=== PATIENT | female | born 1935 | race Hispanic/Latino ===

== ENCOUNTER 2017-08-31 10:00 | Outpatient (CLI) | payer MEDICARE, MEDICAID | END 2017-08-31 10:01 | disposition home or self-care (01) | LOC: MERGE 10:00 → BICMRI 10:00 | PROVIDERS: ATTEND Physical Medicine & Rehabilitation | DX: M54.2 Cervicalgia (principal); M54.5 Low back pain; M25.511 Pain in right shoulder; M25.512 Pain in left shoulder; M47.896 Other spondylosis, lumbar region | CPT/HCPCS: 72141; 72148 ==

== ENCOUNTER 2018-02-02 15:25 | Observation (INO) | payer MEDICARE, MEDICAID ==
[2018-02-02] MEDS ORDERED: cloNIDine 0.1 MG TAB PO PRN (16:29)
[2018-02-02] MEDS ORDERED: Acetaminophen 325 MG TAB PO PRN (16:29)
[2018-02-02] MEDS ORDERED: Nitroglycerin 0.4 MG TAB (25 Tab Bottle) SL PRN (16:29)
[2018-02-02] MEDS ORDERED: Bisacodyl 5 MG TAB PO PRN ×2 (16:29)
[2018-02-02] MEDS ORDERED: Loratadine 10 MG TAB PO PRN (16:29)
[2018-02-02] MEDS ORDERED: Ondansetron HCl/PF 4 MG/2 ML Vial IVP PRN (16:29)
[2018-02-02] MEDS ORDERED: Diabetic Tussin 200 MG/10 ML UDCUP PO PRN (16:29)
[2018-02-02] MEDS ORDERED: Senokot S 8.6-50 MG TAB PO PRN (16:29)
[2018-02-02] MEDS ORDERED: Benzonatate 100 MG CAP PO PRN (16:29)
[2018-02-02] MEDS ORDERED: Senokot 8.6 MG TAB PO PRN (16:29)
[2018-02-02] MEDS ORDERED: Docusate 100 MG CAP PO PRN (16:29)
[2018-02-02] MEDS ORDERED: Calcium Carbonate 500 MG ChewTAB PO PRN (16:29)
[2018-02-02] MEDS ORDERED: hydrALAZINE 20 MG/ML VIAL SLOW IVP PRN (16:29)
[2018-02-02] MEDS ORDERED: Sodium Chloride 0.9% 1,000 ML IV SCH (16:30)
[2018-02-02 16:58] LABS: Troponin I 0.025 ng/mL (< 0.028)
[2018-02-02] MEDS ORDERED: HumaLOG 300 UNITS/3 ML VIAL SC PRN (17:07)
[2018-02-02] MEDS ORDERED: Dextrose 5% in Water 1,000 ML IV PRN (17:07)
[2018-02-02] MEDS ORDERED: Dextrose 50% Abboject 50 ML SYRINGE SLOW IVP PRN (17:07)
--- NOTE | 2018-02-02 17:43 | HP ---
PRIMARY CARE PHYSICIAN: Asmita Ramesh MD CHIEF COMPLAINT: Dizziness and slow heart rate. HISTORY OF PRESENT ILLNESS: Ms. Tejada is an 82-year-old female with past medical history of diabetes, hypertension, dyslipidemia, and peripheral neuropathy as well as history of spinal stenosis, who pre sented to outside emergency room with above-mentioned complaint. History was mainly obtained from e patient herself and discussion with the family members present in the room. Ms. Tejada reports that she woke up this morning feeling fine and she has been feeling fine up until ye as well. She denies any recent illnesses, nausea, vomiting, diarrhea, dysuria, frequency, ur gency. She denies any sick contacts. However, when she woke up this morning she was feeling very we ak all over. She did not have any chest pain, palpitation, or shortness of breath. She had no fever or chills. She had an appointment with her primary care physician today, so she presented to [facility] and her blood pressure was okay, but her heart rate was in the 40s. She was told to go to the mergency room and they drove to [place] [facility] initially. There, on evaluation, her heart rate was 49 w ith a blood pressure of 96/51 upon presentation. She did have a mild elevation of creatinine over he r baseline and rest of the workup including the CT scan of the head was unremarkable. 12-lead EKG sh owed sinus bradycardia. Her cardiac enzymes are mildly bumped at 0.33. She was given 500 mL of flui d and aspirin and was transferred to our facility for further workup. Here, she has been stable and Internal Medicine Team has been called to admit her to the hospital. At the time of my evaluation, the patient feels well and her heart rate has recovered in the 60s. PAST MEDICAL HISTORY: 1. Hypertension. 2. Dyslipidemia. 3. Coronary artery disease. 4. Diabetes mellitus type 2. 5. Neuropathy. 6. Chronic pain secondary to arthritis. 7. Spinal stenosis. PAST SURGICAL HISTORY: Appendectomy, cholecystectomy, hysterectomy, back surgery in 2009. CURRENT MEDICATIONS: Unknown. The patient was on propranolol earlier this year. I am not sure if s he is still taking it or not. I have updated her care provider to bring the medications in tomorrow morning. SOCIAL HISTORY: She lives by herself with the help of a care provider and is ambulatory with a walke r. Her son who is not present in the room at this time is the medical power of managing attorney. No history of drug, tobacco, or alcohol abuse. FAMILY HISTORY: Diabetes and heart disease in her mother and multiple other family members with diab etes mellitus. REVIEW OF SYSTEMS: A 12-point review of systems is done and it is negative except for those mentione d in the history and physical. CODE STATUS: FULL CODE. Discussed with the patient and her daughter present in the room. LABORATORY DATA: CBC shows WBC 7.7, hemoglobin 11.5, platelet count of 254. No left shift, no bande alison. Serum chemistries show creatinine of 1.56 with a BUN of 27, bicarbonate 19 with normal anion ga p. Blood sugar is 251. Troponin initially 0.033 with a repeat troponin of 0.025. 12-lead EKG by my review shows sinus bradycardia without any acute ST or T-wave changes. CT scan of the head by my re view has no evidence to suggest any acute intracranial abnormality. PHYSICAL EXAMINATION: VITAL SIGNS: Upon presentation to the emergency room, blood pressure 96/51, pulse of 49, respiration s 18, saturating 95% on room air. Current heart rate is 62. Temperature is 98.2. GENERAL: No acute distress, awake, alert, oriented x3, lying comfortably in bed. HEENT: Mucous membranes are slightly dry. No oropharyngeal exudate or erythema. Head is normocepha lic, atraumatic. Pupils equal and reactive to light and accommodation. Extraocular movement intact. NECK: Supple without any lymphadenopathy, JVD, or bruit. CHEST: Clear to auscultation without any wheezing, rales, or rhonchi. CARDIOVASCULAR: Rate and rhythm are regular without any murmur, rubs, or gallops. ABDOMEN: Obese, soft, nontender, nondistended with positive bowel sounds. EXTREMITIES: Tender to palpation bilaterally with some chronic lower extremity erythema near the ank les. No specific edema or warmth noticed. NEUROLOGIC: Nonfocal. SKIN: Free of any rashes or bruises. Feel warm and dry to touch. PSYCHIATRIC: Normal affect. IMPRESSION AND PLAN: 1. Sinus bradycardia, most likely secondary to beta lauren that the patient is taking. We will con firm that once the medications are available. Her heart rate is currently in the normal range. She had a negative stress test and rather normal echocardiogram in 02/2014. Repeat troponin is back to h er baseline. We do not suspect ACS at this time. An echocardiogram will be repeated. If the patien t has further episodes of bradycardia, which is symptomatic on telemetry, then we will obtain Cardiol ogy consultation. 2. Dizziness, likely secondary to sinus bradycardia, as well as with evidence of dehydration. Check urinalysis to rule out urinary tract infection as well. Normal saline will be started. 3. Acute kidney insufficiency. The patient reports poor p.o. intake today. We will start her on ge ntle IV fluid hydration and recheck creatinine in the morning. Avoid any nephrotoxic agents. 4. Troponin elevation. Repeat troponin back to normal. Likely secondary to dehydration and episode of sinus bradycardia. Continue to trend serial cardiac enzymes. We will get an echocardiogram. Th e patient has already received aspirin in the emergency room. We will reconcile home medication. 5. Diabetes mellitus. We will put her on insulin sliding scale until the home medications are recon ciled. No evidence to suggest diabetic ketoacidosis at this time. The patient will be on a carb-con trolled diet. 6. Hypertension, currently well controlled. Reconcile home medications and avoid hypotension. 7. Dyslipidemia. Restart home medications once confirmed. 8. Code status: FULL CODE. Discussed with the patient and her family present at bedside. 9. Deep venous thrombosis and gastrointestinal prophylaxis. DISPOSITION: Ms. Tejada is currently being admitted to the hospital in the observation status for furt her workup of isolated episode of bradycardia, likely related to her medication use as well as acute renal insufficiency and further workup of borderline elevated troponin. Further management will depe nd upon her clinical course.
[2018-02-02 18:14] VITALS: BMI 37.0
[2018-02-02 19:47] LABS: Troponin I 0.023 ng/mL (< 0.028)
[2018-02-02] MEDS: Famotidine 20 MG TAB PO SCH (20:38)
[2018-02-02 22:08] LABS: Bilirubin Negative (Negative); Blood, Urine Trace (Negative); Clarity CLOUDY (Clear); Glucose, Urine (Dipstick) >=1000 mg/dL (Negative); Leukocyte Small (Negative); Nitrite Positive (Negative); Protein, Urine (Dipstick) Negative (Neg-Trace); Specific Gravity, Urine 1.027 (1.002-1.036); Urobilinogen 0.2 mg/dL (0.2-1.0); pH, Urine 5.5 (5.0-9.0)
[2018-02-02 22:10] LABS: Bacteria/HPF 4+ HPF (None Seen); Hyaline Casts/LPF 7-10 HYALINE CAST LPF (0-3 Hyaline); Pathc Cast-AUWi Flag 0.43 (0-2.49); RBC/HPF 0-3 HPF (0-3); Squamous Epithelial 0-3 HPF (0-3)
[2018-02-02 23:13] LABS: Troponin I 0.021 ng/mL (< 0.028)
--- NOTE | 2018-02-02 23:41 | ULT ---
BILATERAL LOWER EXTREMITY VENOUS DOPPLER ULTRASOUND 02/02/18 HISTORY: Bilateral lower extremity pain and edema. TECHNIQUE: Diaz scale ultrasound with color flow and spectral doppler imaging of the deep venous systems of the lower extremities was performed bilaterally. There is good flow compression, and augmentation noted in the common femoral, femoral, deep femoral, popliteal, posterior tibial and greater saphenous veins. A complex fluid collection seen in the posterior medial aspect of the right posterior medial aspect o f the right knee measuring 5 x 1.5 x 2.7 cm consistent with a Santana's cyst. IMPRESSION: No evidence of DVT in either lower extremity. POS: [facility]
[2018-02-03 04:36] LABS: #Basophils 0.1 thou/uL (0.0-0.2); #Eosinphils 0.1 thou/uL (0.0-0.7); #Lymphocytes 1.9 thou/uL (1.20-3.40); #Monocytes 0.6 thou/uL (0.11-0.59); #Neutrophils 3.4 thou/uL (1.40-6.50); %Eosinophils 1.5 % (0.0-10.0); %Lymphocytes 31.7 % (21.0-51.0); %Monocytes 9.4 % (0.0-10.0); %Neutrophils 56.4 % (42.0-75.0); Mean Corpuscular HGB CONC 31.6 g/dL (32.0-36.0); Mean Corpuscular Hemoglobin 29.7 pg (27.0-31.0); Mean Corpuscular Volume 93.9 fL (78.0-98.0); Mean Platelet Volume 8.6 fL (7.4-10.4); Platelet Count 258 thou/uL (130-400); RBC Distribution Width 15.3 % (11.5-14.5); Red Blood Cell (RBC) Count 3.72 mill/uL (4.20-5.40)
[2018-02-03 04:52] LABS: Anion Gap 12 mmol/L (10-20); BUN (Urea Nitrogen) 24 mg/dL (9.8-20.1); Calc. Creatinine Clearance 52 mL/min (70-130); Calcium 8.8 mg/dL (7.8-10.44); Carbon Dioxide 22 mmol/L (23-31); Chloride 108 mmol/L (98-107); Estimated GFR-MDRD 48; Glucose 153 mg/dL (83-110); Sodium 138 mmol/L (136-145)
[2018-02-03 07:46] VITALS: TEMP 98.1
[2018-02-03] MEDS ORDERED: Enoxaparin Sodium 30 MG/0.3 ML SYRINGE SC SCH (09:00)
[2018-02-03] MEDS ORDERED: cefTRIAXone\\ROCEPHIN 1 GM in Sodium Chloride 0.9% 100 ML IVPB SCH (09:00)
[2018-02-03] MEDS: Famotidine 20 MG TAB PO SCH (10:14)
[2018-02-03 12:22] VITALS: BP 142/65
--- NOTE | 2018-02-03 14:46 | DIS ---
DATE OF ADMISSION: 02/02/2018 DATE OF DISCHARGE: 02/03/2018 DISCHARGE DIAGNOSES: Include presyncope, bradycardia and hypertension. CONSULTATIONS: None. CODE STATUS: FULL. PROCEDURES: Include chest x-ray and venogram. Venogram ultrasound of bilateral legs, Doppler has no evidence of DVT in either extremity. HISTORY: Ms. Tejada is an 82-year-old female with a past medical history of diabetes, hypertension, dy slipidemia, and peripheral neuropathy. She presented to the emergency room for dizziness and a slow heart rate. She denies any recent illness. Denies any sick contacts. She was feeling very weak all over when she woke up yesterday morning. Denies chest pain, had no fevers or chills and her blood p ressure when she went to her primary care office in [place] was in 40s. Initially when she got to [facility] emergency room, her blood pressure was 49 with a blood pressure of 96/[address] scan of the head in [place] was unremarkable. EKG showed sinus bradycardia. Cardiac enzymes were mildly bumpe d, they have remained negative. PHYSICAL EXAMINATION: VITAL SIGNS: On discharge, blood pressure 142/65, heart rate 72, temperature was 98.1, respirations were 18. REVIEW OF SYSTEMS: .
--- NOTE | 2018-02-04 01:19 | DIS ---
DATE OF ADMISSION: 02/02/2018 DATE OF DISCHARGE: 02/03/2018 PRIMARY CARE PHYSICIAN: Dr. Asmita Ramesh. DISCHARGE DIAGNOSES: 1. Sinus bradycardia which has improved off beta lauren. 2. Dizziness which is resolved today. 3. Acute kidney injury which was resolved with gentle hydration. 4. Diabetes mellitus 2. 5. Hypertension. 6. Dyslipidemia. 7. Urinary tract infection. CODE STATUS: FULL. ALLERGIES: ASPIRIN, LEVOTHYROXINE and TRAMADOL. PROCEDURES: She had a bilateral Doppler to bilateral legs on 02/02 which were negative for DVT. Ech o today at 10:10 with LVEF of 55-60%. Findings suggestive of some diastolic dysfunction. PHYSICAL EXAMINATION: VITAL SIGNS: Temperature 98.1, pulse 67, respirations 18, pulse ox is 96% on room air, blood pressur e is 146/65. The patient was seen by me prior to discharge, refer to the H&P dictated on 02/02, no c hanges, unless otherwise indicated in the hospital course. HOSPITAL COURSE: Ms. Tejada was admitted through ED as a transfer from an outside ER for weakness and dizziness which started earlier in the day on 02/02/2018. First set of troponins were slightly eleva he; however, the next 2 were normal. Symptoms are thought to be related to her beta lauren which w as not given while she was in the hospital and symptoms have improved. Patient reports she is feelin g better. Dizziness has resolved. We will discontinue the beta lauren and have the patient take he r blood pressure while she is at home and have her follow up with Dr. Ramesh within the next week. She was also found to have a UTI, which was treated in-house and since she was sent home with some antib iotics. DISCHARGE MEDICATIONS: Her home medications were restarted, 20 mg p.o. daily, Invokana 100 mg p.o. daily, Cymbalta 60 mg p.o. daily, Neurontin 300 mg p.o. t.i.d., Nexium 40 mg p.o. daily, metform in 1000 mg p.o. b.i.d.. Prednisone she takes 5 mg p.o. daily, levothyroxine 50 mcg p.o. daily, Actos 45 mg p.o. daily, pravastatin 40 mg p.o. at bedtime, cefdinir, which was added today 300 mg p.o. b.i .d. for her UTI. She was taken off her propranolol. DISCHARGE CONDITION: Stable. DISPOSITION: Home. FOLLOWUP APPOINTMENTS: To follow up with her PCP, Dr. Ramesh within 1 week.
== END 2018-02-03 16:20 | disposition home or self-care (01) ==
LOC: ERS 15:25 → 2SW 17:10
PROVIDERS: ADMIT Internal Medicine; ATTEND Internal Medicine
DX: R00.1 Bradycardia, unspecified (principal); R42 Dizziness and giddiness; N17.9 Acute kidney failure, unspecified; N39.0 Urinary tract infection, site not specified; R79.89 Other specified abnormal findings of blood chemistry; E11.42 Type 2 diabetes mellitus with diabetic polyneuropathy; I10 Essential (primary) hypertension; E78.5 Hyperlipidemia, unspecified; M48.062 Spinal stenosis, lumbar region with neurogenic claudication; I25.10 Atherosclerotic heart disease of native coronary artery without angina pectoris; M19.90 Unspecified osteoarthritis, unspecified site; E66.9 Obesity, unspecified; Z68.37 Body mass index [BMI] 37.0-37.9, adult; Z79.52 Long term (current) use of systemic steroids; Z79.899 Other long term (current) drug therapy; Z88.5 Allergy status to narcotic agent; Z79.84 Long term (current) use of oral hypoglycemic drugs; Z88.8 Allergy status to other drugs, medicaments and biological substances
CPT/HCPCS: 80048; 81001; 82010; 82962 ×2; 84484; 85025; 87077; 87086; 87186; 93005; 93306; 93970; 96361 ×2; 96365; 96372; 99285; G0378 ×2; G8978; G8979; 36415; 36416; J0696; J1650; J7050

== ENCOUNTER 2018-04-14 09:58 | Outpatient (CLI) | payer MEDICARE, MEDICAID ==
--- NOTE | 2018-04-14 12:13 | BD ---
EXAM: DEXA BONE DENSITY STUDY: History: 82-year-old female with history of osteoporosis. Comparison: 06-23-16 BMD (g/cm2) Right Hip: Right femoral neck: 0.665 T-Score: -1.7 Total 0.991 T-Score: -0.3 Evidence for osteopenia with increased risk for fracture, essentially stable from prior 06-23-16 study . Left Hip: Left femoral neck: 0.678 T-Score: -1.5 Total: 0.989 T-Score: +0.4 Evidence for osteopenia with increased risk for fracture, bone mineral density has improved approxima tely 1.7% from the prior study. FRAX score: Major osteoporotic fracture 27%, hip fracture 16%. POS: [facility]
--- NOTE | 2018-04-14 12:14 | RAD ---
RIGHT SHOULDER THREE VIEWS: History: Shoulder pain. Comparison: None. FINDINGS: No acute fracture or malalignment. Large subacromial osteophyte. Mild degenerative disease, acromioclavicular joint. IMPRESSION: Large subacromial osteophyte can cause severe acromial impingement. No acute abnormality. POS: [facility]
--- NOTE | 2018-04-14 12:16 | RAD ---
LEFT SHOULDER THREE VIEWS: History: Pain. Comparison: None. FINDINGS: No fracture. No malalignment. A large subacromial osteophyte. Ribs are intact. Mild degenerative disease of the glenohumeral joint with osteophyte formation. IMPRESSION: Large subacromial osteophyte can be a cause of subacromial impingement. POS: [facility]
== END 2018-04-14 09:59 | disposition home or self-care (01) ==
LOC: BICMAMMO 09:58
PROVIDERS: ATTEND Internal Medicine Rheumatology
DX: Z13.820 Encounter for screening for osteoporosis (principal); M25.511 Pain in right shoulder; M25.512 Pain in left shoulder; M85.851 Other specified disorders of bone density and structure, right thigh; M85.852 Other specified disorders of bone density and structure, left thigh; M25.712 Osteophyte, left shoulder; M25.711 Osteophyte, right shoulder
CPT/HCPCS: 77080

== ENCOUNTER 2018-07-01 16:16 | Inpatient (IN) | payer MEDICARE, OTHER ==
[2018-07-01 17:07] LABS: #Lymphocytes 1.6 thou/uL (1.20-3.40); #Monocytes 0.5 thou/uL (0.11-0.59); #Neutrophils 4.9 thou/uL (1.40-6.50); %Basophils 0.1 % (0.0-1.0); %Eosinophils 0.3 % (0.0-10.0); %Lymphocytes 22.8 % (21.0-51.0); %Monocytes 7.3 % (0.0-10.0); %Neutrophils 69.5 % (42.0-75.0); Hemoglobin 9.8 g/dL (12.0-16.0); Mean Corpuscular HGB CONC 31.7 g/dL (32.0-36.0); Mean Corpuscular Hemoglobin 29.8 pg (27.0-31.0); Mean Corpuscular Volume 93.8 fL (78.0-98.0); Mean Platelet Volume 8.3 fL (7.4-10.4); Platelet Count 224 thou/uL (130-400); RBC Distribution Width 15.5 % (11.5-14.5)
[2018-07-01 17:23] LABS: ALT (SGPT) 32 U/L (8-55); AST (SGOT) 35 U/L (5-34); Albumin 3.6 g/dL (3.4-4.8); Alkaline Phosphatase 65 U/L (40-150); Anion Gap 13 mmol/L (10-20); BUN (Urea Nitrogen) 39 mg/dL (9.8-20.1); Bilirubin, Total 0.2 mg/dL (0.2-1.2); Calc. Creatinine Clearance 0 mL/min (70-130); Calcium 8.7 mg/dL (7.8-10.44); Carbon Dioxide 20 mmol/L (23-31); Chloride 107 mmol/L (98-107); Estimated GFR-MDRD 45; Globulin 2.6 g/dL (2.4-3.5); Glucose 172 mg/dL (83-110); Potassium 4.8 mmol/L (3.5-5.1); Protein, Total 6.2 g/dL (6.0-8.3); Sodium 135 mmol/L (136-145)
[2018-07-01 19:39] LABS: Bilirubin Negative (Negative); Blood, Urine Trace (Negative); Clarity CLOUDY (Clear); Glucose, Urine (Dipstick) 250 mg/dL (Negative); Leukocyte Moderate (Negative); Nitrite Positive (Negative); Protein, Urine (Dipstick) Negative (Neg-Trace); Specific Gravity, Urine 1.018 (1.002-1.036); Urobilinogen 0.2 mg/dL (0.2-1.0); pH, Urine 5.5 (5.0-9.0)
[2018-07-01 19:44] LABS: Bacteria/HPF 4+ HPF (None Seen); Hyaline Casts/LPF 4-6 HYALINE CAST LPF (0-3 Hyaline); Pathc Cast-AUWi Flag 1.63 (0-2.49)
[2018-07-01 20:06] LABS: RBC/HPF 0-3 HPF (0-3)
[2018-07-01 20:07] LABS: Renal Epithelial None Seen HPF (0-3); Transitional Epithelial 0-3 HPF (0-3)
[2018-07-01] MEDS ORDERED: Ondansetron PF 4 MG/2 ML Vial IVP PRN ×2 (21:04→22:01)
[2018-07-01] MEDS ORDERED: Ondansetron ODT 4 MG TAB SL PRN (21:04)
[2018-07-01] MEDS ORDERED: Acetaminophen 325 MG TAB PO PRN (21:04)
[2018-07-01] MEDS ORDERED: Dextrose 50% Abboject 50 ML SYRINGE SLOW IVP PRN (22:01)
[2018-07-01] MEDS ORDERED: Ondansetron ODT 4 MG TAB PO PRN (22:01)
[2018-07-01] MEDS ORDERED: Dextrose 5% in Water 1,000 ML IV PRN (22:01)
[2018-07-01] MEDS ORDERED: HumaLOG 300 UNITS/3 ML VIAL SC PRN ×2 (22:01)
[2018-07-01] MEDS: cefTRIAXone\\ROCEPHIN 2 GM in Sodium Chloride 0.9% 100 ML IVPB SCH (23:56)
[2018-07-01] MEDS: Sodium Chloride 0.9% 1,000 ML IV SCH (23:57)
--- NOTE | 2018-07-02 01:58 | HP ---
PRIMARY CARE PROVIDER: Asmita Ramesh MD CHIEF COMPLAINT: General body aches and back pain. HISTORY OF PRESENT ILLNESS: This is an 82-year-old female, who presented to [facility] Emergency Department in transfer from [facility] Department for suspected urinary tract infection and questionable sepsis. The patient apparently was attending her physical therapy session when she complained of some shortness of breath, back pain, and general weakness. The patient apparently had O2 saturation measured in the 70s range and was placed on oxygen supplementation. The patient complained of some lower back pain, general body aches, general malaise, and mild dysuria over the last 24 to 48 hours. The patient denied any recent exposure history, falls or injury. The patient denied any specific change to her chronic medication regimen. The patient did not take any specific medications or remedies to alleviate her symptoms. The patient does report a history of urinary tract infections on multiple occasions dating back over the last 3-4 years. In the emergency room, the patient underwent general evaluation and was noted with mild hypotension, receiving IV fluids. The patient received intravenous normal saline x1 L in the emergency room and noted to be 99% on room air. The patient was transferred to the telemetry unit for further evaluation and treatment for suspected urinary tract infection. PAST MEDICAL HISTORY: 1. Recurrent urinary tract infections. 2. Hypertension. 3. Dyslipidemia. 4. Coronary artery disease. 5. Diabetes mellitus type 2, on oral hypoglycemics. 6. Peripheral neuropathy. 7. Chronic pain secondary to osteoarthritis. 8. History of spinal stenosis. PAST SURGICAL HISTORY: 1. Status post appendectomy. 2. Status post cholecystectomy. 3. Status post hysterectomy. 4. Status post back surgery. CURRENT MEDICATIONS: Based on review of the electronic medical record; 1. Invokana 100 mg p.o. daily. 2. Cymbalta 60 mg p.o. daily. 3. Lexapro 20 mg p.o. daily. 4. Nexium 40 mg p.o. daily. 5. Gabapentin 300 mg p.o. t.i.d. 6. Levothyroxine 50 mcg p.o. daily. 7. Metformin 1000 mg p.o. b.i.d. 8. Actos 45 mg p.o. daily. 9. Pravachol 40 mg p.o. at bedtime. ALLERGIES: TO ASPIRIN, LEVOTHYROXINE, AND TRAMADOL. FAMILY HISTORY: Positive for diabetes and coronary artery disease in her mother. Father lived into the mid 90s. Mother at age 73. SOCIAL HISTORY: The patient resides in [place], [place], living independently with the help of a care provider. Ambulates with use of a rolling walker. Her son is medical [id number]. No current alcohol, tobacco, or illicit drug use. REVIEW OF SYSTEMS: CONSTITUTIONAL: Negative for weight loss or gain, ability to conduct usual activities. SKIN: Negative for rash, itching. EYES: Negative for double vision, pain. ENT/MOUTH: Negative for nose bleeding, neck stiffness, pain, tenderness. CARDIOVASCULAR: Negative for palpitations, dyspnea on exertion, orthopnea. RESPIRATORY: Negative for shortness of breath, wheezing, cough, hemoptysis, fever or night sweats. GASTROINTESTINAL: Negative for poor appetite, abdominal pain, heartburn, nausea, vomiting, constipation, or diarrhea. GENITOURINARY: Negative for urgency, frequency, dysuria, nocturia. MUSCULOSKELETAL: Negative for pain, swelling. NEUROLOGIC/PSYCHIATRIC: Negative for anxiety, depression. ALLERGY/IMMUNOLOGIC: Negative for skin rash, bleeding tendency. Otherwise, negative except as stated per HPI. PHYSICAL EXAMINATION: VITAL SIGNS: On admission. Blood pressure 96/57, pulse 51, respiratory rate 19, temperature 97.9 degrees Fahrenheit, O2 saturation 99% on room air. GENERAL APPEARANCE: This is an 82-year-old female, alert and oriented x3, pleasant, responsive, in no acute distress. HEENT: Pupils are equal, round, reactive to light and accommodation. Extraocular muscles are intact. No scleral icterus. No conjunctival injection. Nares are patent. OP is clear. Teeth are in fair repair. NECK: Supple. No cervical adenopathy. No thyromegaly. No carotid bruits. No JVD appreciated. Cervical spine with full active and passive range of motions. No meningeal signs noted. CHEST: Lungs are clear to auscultation bilaterally. CARDIOVASCULAR: S1 and S2 without noted murmur, rub, or gallop. ABDOMEN: Obese, soft, nontender, and nondistended. Bowel sounds are positive in all 4 quadrants. Mild suprapubic tenderness elicited. No palpable mass. No rebound or guarding. EXTREMITIES: Warm and dry with fair turgor. No clubbing, cyanosis, or asymmetric edema appreciated. Pulses are palpable distally at the dorsalis pedis, posterior tibial, and popliteal arteries bilaterally. Capillary refill is less than 2 seconds. NEUROLOGIC: Cranial nerves 2 through 12 are grossly intact. No focal or lateralizing signs appreciated. PERTINENT LAB AND X-RAY FINDINGS: Portable chest x-ray dated 07/01/2018, showed cardiomegaly with mild pulmonary vascular prominence. ASSESSMENT/PLAN: 1. Urinary tract infection. Suspected. We will initiate Rocephin 2 g IV q.24 hours. Continue IV fluids with normal saline at 100 mL/h. Urine and blood cultures are pending. Previous review of electronic medical record shows urine cultures positive for E coli and Proteus species. 2. Systemic inflammatory response syndrome. We will continue IV fluids as outlined previously. General supportive management and IV antibiotics as directed in #1. 3. Acute kidney injury. Avoid nephrotoxic agents and limit contrast exposure. Continue IV fluids as outlined previously. Repeat creatinine and monitor renal function. 4. Diabetes mellitus, type 2. Insulin sliding scale for reflexive coverage. Confirm home diabetic regimen. Accu-Cheks before meals and at bedtime. ADA diet. 5. Hypotension. Mild. Responding appropriately to IV fluid administration. Hold antihypertensive regimen and monitor clinically. 6. Normocytic anemia. Chronic appearing. Stable currently. No current evidence to suggest acute blood loss. Repeat CBC in the a.m. 7. Prophylaxis. SCDs while in bed. Pepcid 20 mg p.o. b.i.d. PT evaluation in the a.m. for functional assessment. 8. Code status is full. Surrogate medical decision maker is patient's son. Job ID: [id number]
[2018-07-02] MEDS: Sodium Chloride 0.9% 1,000 ML IV SCH (05:34)
[2018-07-02 05:39] VITALS: BMI 36.4
[2018-07-02] MEDS ORDERED: Levothyroxine Sodium 50 MCG TAB PO SCH (06:00)
[2018-07-02 07:02] LABS: Band 1 % (5-11); Eosinophils 1 % (0-10); Hemoglobin 9.9 g/dL (12.0-16.0); Lymphocytes 33 % (21-51); MDiff Complete? YES; Mean Corpuscular HGB CONC 32.2 g/dL (32.0-36.0); Mean Corpuscular Hemoglobin 28.9 pg (27.0-31.0); Mean Corpuscular Volume 89.9 fL (78.0-98.0); Monocytes 7 % (0-10); Neutrophil 58 % (42-75); Platelet Count 192 thou/uL (130-400); Platelet Morphology Comment Appears Adequate; RBC Distribution Width 15.5 % (11.5-14.5); Red Blood Cell (RBC) Count 3.42 mill/uL (4.20-5.40); White Blood Cell (WBC) Count 6.4 thou/uL (4.8-10.8)
[2018-07-02 07:04] LABS: Anion Gap 15 mmol/L (10-20); BUN (Urea Nitrogen) 29 mg/dL (9.8-20.1); Calc. Creatinine Clearance 62 mL/min (70-130); Calcium 8.4 mg/dL (7.8-10.44); Carbon Dioxide 19 mmol/L (23-31); Chloride 111 mmol/L (98-107); Estimated GFR-MDRD 56; Glucose 115 mg/dL (83-110); Potassium 3.9 mmol/L (3.5-5.1); Sodium 141 mmol/L (136-145)
[2018-07-02] MEDS ORDERED: Famotidine 20 MG TAB PO SCH (09:00)
[2018-07-02] MEDS: Gabapentin 300 MG CAP PO SCH ×3 (09:31→21:29)
[2018-07-02] MEDS: Escitalopram Oxalate 20 mg Tablet PO SCH (09:31)
--- NOTE | 2018-07-02 14:11 | PDOC.PN ---
- Subjective Encounter Start Date: 07/02/18 Encounter Start Time: 08:15 Subjective: awake, feels better -: no nausea or abd pain - Objective Resuscitation Status - Order Detail: 07/01/18 21:56 Resuscitation Status Routine Resuscitation Status: FULL: Full Resuscitation MAR Reviewed: Yes Vital Signs & Weight: Vital Signs (12 hours) Temp Pulse Pulse Pulse Resp BP BP 07/02/18 11:25 64 65 154/67 H 202/77 H 07/02/18 11:12 97.6 F 68 16 07/02/18 07:20 97.7 F 60 16 07/02/18 03:40 97.6 F 56 L 20 BP BP BP Pulse Ox Pulse Ox Pulse Ox 07/02/18 11:25 186/74 H 96 98 07/02/18 11:12 144/64 H 97 07/02/18 07:20 150/66 H 96 07/02/18 03:40 161/70 H 95 Weight Weight 186 lb 9.6 oz I&O: 07/01/18 07/02/18 07/03/18 06:59 06:59 06:59 Intake Total 2286 730 Output Total 1450 700 Balance 836 30 Result Diagrams: 07/02/18 06:31 07/02/18 06:31 Additional Labs: Accuchecks 07/02/18 07/02/18 07/01/18 10:55 05:50 20:38 POC Glucose 180 H 120 H 144 H Phys Exam - Physical Examination HEENT: PERRLA, moist MMs Neck: no JVD, supple Respiratory: no wheezing, no rales Cardiovascular: RRR, no significant murmur Gastrointestinal: soft, non-tender, positive bowel sounds Musculoskeletal: no edema, pulses present Neurological: non-focal, moves all 4 limbs Psychiatric: normal affect, A&O x 3 Dx/Plan (1) UTI (urinary tract infection) Status: Acute Qualifiers: Urinary tract infection type: acute cystitis Hematuria presence: without hematuria Qualified Code(s): N30.00 - Acute cystitis without hematuria (2) SIRS (systemic inflammatory response syndrome) Code(s): R65.10 - SIRS OF NON-INFECTIOUS ORIGIN W/O ACUTE ORGAN DYSFUNCTION Status: Acute (3) DM type 2 (diabetes mellitus, type 2) Status: Chronic Qualifiers: Diabetes mellitus intermediate insulin use: without intermediate use Diabetes mellitus complication status: with unspecified complications Qualified Code(s) : E11.8 - Type 2 diabetes mellitus with unspecified complications (4) Anemia Code(s): D64.9 - ANEMIA, UNSPECIFIED Status: Chronic Qualifiers: Anemia type: unspecified type Qualified Code(s): D64.9 - Anemia, unspecified (5) HTN (hypertension) Code(s): I10 - ESSENTIAL (PRIMARY) HYPERTENSION Status: Chronic Qualifiers: Hypertension type: essential hypertension Qualified Code(s): I10 - Essential (primary) hypertension (6) Dyslipidemia Code(s): E78.5 - HYPERLIPIDEMIA, UNSPECIFIED Status: Chronic (7) Hypothyroidism Code(s): E03.9 - HYPOTHYROIDISM, UNSPECIFIED Status: Chronic Qualifiers: Hypothyroidism type: unspecified Qualified Code(s): E03.9 - Hypothyroidism , unspecified (8) CAD (coronary artery disease) Code(s): I25.10 - ATHSCL HEART DISEASE OF [place] CORONARY ARTERY W/O ANG PCTRS Status: Chronic Qualifiers: Coronary Disease-Associated Artery/Lesion type: elim ir[place] artery [place] vs. transplanted heart: [place] heart Associated angina: without angina Qualified Code(s): I25.10 - Atherosclerotic heart disease of [place] coronary artery without angina pectoris - Plan is on ceftriaxone -: dc iv fluids, encourage po intake -: tx to med floor -: to amb as tolerated -: continue gabapentin, asp, toprol, pravachol * . Review of Systems - Medications/Allergies Allergies/Adverse Reactions: Allergies Allergy/AdvReac Type Severity Reaction Status Date / Time amoxicillin [From Augmentin] Allergy Verified 07/01/18 22:40 aspirin [From Anacin] Allergy Verified 07/01/18 22:40 celecoxib [From Celebrex] Allergy Verified 07/01/18 22:40 clavulanic acid Allergy Verified 07/01/18 22:40 [From Augmentin] levothyroxine sodium Allergy Verified 07/01/18 22:40 pregabalin [From Lyrica] Allergy Verified 07/01/18 22:40 tramadol Allergy Nausea Verified 07/01/18 22:40 Medications: Current Medications Acetaminophen (Tylenol) 1,000 mg PO Q6H PRN PRN Reason: Mild Pain (1-3) Dextrose/Water (Dextrose 50%) 25 gm SLOW IVP PRN PRN PRN Reason: Hypoglycemia Escitalopram Oxalate (Lexapro) 20 mg PO DAILY [facility] Last Admin: 07/02/18 09:31 Dose: 20 mg Famotidine (Pepcid) 20 mg PO BID [facility] Last Admin: 07/02/18 09:32 Dose: 20 mg Gabapentin (Neurontin) 300 mg PO TID [facility] Last Admin: 07/02/18 09:31 Dose: 300 mg Glucagon (Glucagon) 1 mg IM PRN PRN PRN Reason: Hypoglycemia Ceftriaxone Sodium 2 gm/ (Sodium Chloride) 100 mls @ 200 mls/hr IVPB 2200 [facility] Last Admin: 07/01/18 23:56 Dose: 100 mls Dextrose/Water (D5w) 1,000 mls @ 0 mls/hr IV .Q0M PRN PRN Reason: Hypoglycemia Insulin Human Lispro (Humalog) 0 units SC .MILD SLIDING SCALE PRN PRN Reason: Mild Correctional Scale Insulin Human Lispro (Humalog) 0 units SC .BEDTIME SLIDING SC PRN PRN Reason: Bedtime Correctional Scale Ondansetron HCl (Zofran Odt) 4 mg PO Q6H PRN PRN Reason: Nausea/Vomiting Ondansetron HCl (Zofran) 4 mg IVP Q6H PRN PRN Reason: Nausea/Vomiting Sodium Chloride (Flush - Normal Saline) 10 ml IVF Q12HR [facility] Last Admin: 07/02/18 08:56 Dose: Not Given Sodium Chloride (Flush - Normal Saline) 10 ml IVF PRN PRN PRN Reason: Saline Flush
[2018-07-02] MEDS ORDERED: Loperamide HCl 2 MG CAP PO PRN (15:10)
[2018-07-02] MEDS: cefTRIAXone\\ROCEPHIN 2 GM in Sodium Chloride 0.9% 100 ML IVPB SCH (21:29)
[2018-07-02] MEDS: Atorvastatin Calcium 10 MG TAB PO SCH (21:29)
[2018-07-02] MEDS: Acetaminophen 500 MG TAB PO PRN (21:32)
[2018-07-03] MEDS ORDERED: Vancomycin HCl 1 GM in Premix Bag 1 BAG IVPB SCH (07:00)
[2018-07-03] MEDS: Aspirin Chewable 81 MG TAB PO SCH (08:08)
[2018-07-03] MEDS: Gabapentin 300 MG CAP PO SCH ×3 (08:08→21:07)
[2018-07-03] MEDS: DULoxetine 60 MG CAP PO SCH (08:08)
[2018-07-03] MEDS: metFORMIN 500 MG TAB PO SCH (08:08)
[2018-07-03] MEDS: Escitalopram Oxalate 20 mg Tablet PO SCH (08:08)
--- NOTE | 2018-07-03 15:39 | PDOC.PN ---
- Subjective Encounter Start Date: 07/03/18 Encounter Start Time: 11:20 Subjective: no sob or abd pain -: is tolerating oral diet -: has not ambulated much except to reach her commode - Objective Resuscitation Status - Order Detail: 07/01/18 21:56 Resuscitation Status Routine Resuscitation Status: FULL: Full Resuscitation MAR Reviewed: Yes Vital Signs & Weight: Vital Signs (12 hours) Temp Pulse Resp BP BP Pulse Ox 07/03/18 11:00 98.3 F 71 18 140/77 95 07/03/18 08:00 98.5 F 79 20 156/77 H 94 L 07/03/18 04:01 98.2 F 73 20 146/82 H 95 Weight Weight 186 lb 9.6 oz I&O: 07/02/18 07/03/18 07/04/18 06:59 06:59 07:59 Intake Total 2286 730 Output Total 1450 700 Balance 836 30 Result Diagrams: 07/02/18 06:31 07/02/18 06:31 Additional Labs: Accuchecks 07/03/18 07/03/18 07/02/18 11:49 04:05 19:49 POC Glucose 212 H 138 H 172 H 07/02/18 16:14 POC Glucose 120 H Phys Exam - Physical Examination HEENT: PERRLA, moist MMs Neck: no JVD, supple Respiratory: no wheezing, no rales Cardiovascular: RRR, no significant murmur Gastrointestinal: soft, non-tender, positive bowel sounds Musculoskeletal: no edema, pulses present Neurological: non-focal, moves all 4 limbs Psychiatric: normal affect, A&O x 3 Dx/Plan (1) UTI (urinary tract infection) Status: Acute Qualifiers: Urinary tract infection type: acute cystitis Hematuria presence: without hematuria Qualified Code(s): N30.00 - Acute cystitis without hematuria (2) SIRS (systemic inflammatory response syndrome) Code(s): R65.10 - SIRS OF NON-INFECTIOUS ORIGIN W/O ACUTE ORGAN DYSFUNCTION Status: Resolved (3) DM type 2 (diabetes mellitus, type 2) Status: Chronic Qualifiers: Diabetes mellitus [place] headgate operator insulin use: without detention use Diabetes mellitus complication status: with unspecified complications Qualified Code(s) : E11.8 - Type 2 diabetes mellitus with unspecified complications (4) Anemia Code(s): D64.9 - ANEMIA, UNSPECIFIED Status: Chronic Qualifiers: Anemia type: unspecified type Qualified Code(s): D64.9 - Anemia, unspecified (5) HTN (hypertension) Code(s): I10 - ESSENTIAL (PRIMARY) HYPERTENSION Status: Chronic Qualifiers: Hypertension type: essential hypertension Qualified Code(s): I10 - Essential (primary) hypertension (6) Dyslipidemia Code(s): E78.5 - HYPERLIPIDEMIA, UNSPECIFIED Status: Chronic (7) Hypothyroidism Code(s): E03.9 - HYPOTHYROIDISM, UNSPECIFIED Status: Chronic Qualifiers: Hypothyroidism type: unspecified Qualified Code(s): E03.9 - Hypothyroidism , unspecified (8) CAD (coronary artery disease) Code(s): I25.10 - ATHSCL HEART DISEASE OF [place] CORONARY ARTERY W/O ANG PCTRS Status: Chronic Qualifiers: Coronary Disease-Associated Artery/Lesion type: [place] artery [place] vs. transplanted heart: [place] heart Associated angina: without angina Qualified Code(s): I25.10 - Atherosclerotic heart disease of [place] coronary artery without angina pectoris - Plan to amb as [facility] -: on ceftriaxone, culture is growing e.coli resistant to quinolones -: dc plan in am home if she ambulates well on bactrim -: continue asp, lipitor, toprol, metformin -: encourage po intake * . Review of Systems - Medications/Allergies Allergies/Adverse Reactions: Allergies Allergy/AdvReac Type Severity Reaction Status Date / Time amoxicillin [From Augmentin] Allergy Verified 07/01/18 22:40 aspirin [From Anacin] Allergy Verified 07/01/18 22:40 celecoxib [From Celebrex] Allergy Verified 07/01/18 22:40 clavulanic acid Allergy Verified 07/01/18 22:40 [From Augmentin] levothyroxine sodium Allergy Verified 07/01/18 22:40 pregabalin [From Lyrica] Allergy Verified 07/01/18 22:40 tramadol Allergy Nausea Verified 07/01/18 22:40 Medications: Current Medications Acetaminophen (Tylenol) 1,000 mg PO Q6H PRN PRN Reason: Mild Pain (1-3) Last Admin: 07/02/18 21:32 Dose: 1,000 mg Aspirin (Aspirin Chewable) 81 mg PO DAILY [facility] Last Admin: 07/03/18 08:08 Dose: 81 mg Atorvastatin Calcium (Lipitor) 10 mg PO HS [facility] Last Admin: 07/02/18 21:29 Dose: 10 mg Dextrose/Water (Dextrose 50%) 25 gm SLOW IVP PRN PRN PRN Reason: Hypoglycemia Duloxetine HCl (Cymbalta) 60 mg PO DAILY [facility] Last Admin: 07/03/18 08:08 Dose: 60 mg Escitalopram Oxalate (Lexapro) 20 mg PO DAILY [facility] Last Admin: 07/03/18 08:08 Dose: 20 mg Gabapentin (Neurontin) 300 mg PO TID [facility] Last Admin: 07/03/18 08:08 Dose: 300 mg Glucagon (Glucagon) 1 mg IM PRN PRN PRN Reason: Hypoglycemia Ceftriaxone Sodium 2 gm/ (Sodium Chloride) 100 mls @ 200 mls/hr IVPB 2200 [facility] Last Admin: 07/02/18 21:29 Dose: 100 mls Dextrose/Water (D5w) 1,000 mls @ 0 mls/hr IV .Q0M PRN PRN Reason: Hypoglycemia Insulin Human Lispro (Humalog) 0 units SC .MILD SLIDING SCALE PRN PRN Reason: Mild Correctional Scale Last Admin: 07/03/18 12:33 Dose: 3 unit Insulin Human Lispro (Humalog) 0 units SC .BEDTIME SLIDING SC PRN PRN Reason: Bedtime Correctional Scale Loperamide HCl (Imodium) 2 mg PO PRN PRN PRN Reason: Diarrhea/Loose Stools Last Admin: 07/02/18 15:45 Dose: 2 mg Metformin HCl (Glucophage) 1,000 mg PO QA[facility] Last Admin: 07/03/18 08:08 Dose: 1,000 mg Metoprolol Succinate (Toprol Xl) 25 mg PO DAILY [facility] Last Admin: 07/03/18 08:08 Dose: 25 mg Ondansetron HCl (Zofran Odt) 4 mg PO Q6H PRN PRN Reason: Nausea/Vomiting Ondansetron HCl (Zofran) 4 mg IVP Q6H PRN PRN Reason: Nausea/Vomiting Pantoprazole Sodium (Protonix) 40 mg PO DAILY [facility] Last Admin: 07/03/18 08:08 Dose: 40 mg Sodium Chloride (Flush - Normal Saline) 10 ml IVF Q12HR [facility] Last Admin: 07/03/18 08:10 Dose: 10 ml Sodium Chloride (Flush - Normal Saline) 10 ml IVF PRN PRN PRN Reason: Saline Flush
[2018-07-03] MEDS: Atorvastatin Calcium 10 MG TAB PO SCH (21:07)
[2018-07-03] MEDS: cefTRIAXone\\ROCEPHIN 2 GM in Sodium Chloride 0.9% 100 ML IVPB SCH (21:07)
[2018-07-03] MEDS: Acetaminophen 500 MG TAB PO PRN (21:07)
[2018-07-04 08:33] VITALS: BP 139/79; TEMP 98.1
[2018-07-04] MEDS: metFORMIN 500 MG TAB PO SCH (08:37)
[2018-07-04] MEDS: Aspirin Chewable 81 MG TAB PO SCH (08:37)
[2018-07-04] MEDS: Gabapentin 300 MG CAP PO SCH (08:37)
[2018-07-04] MEDS: DULoxetine 60 MG CAP PO SCH (08:37)
[2018-07-04] MEDS: Escitalopram Oxalate 20 mg Tablet PO SCH (08:37)
--- NOTE | 2018-07-04 13:38 | PDOC.PN ---
- Subjective Encounter Start Date: 07/04/18 Encounter Start Time: 09:00 Subjective: feels better, is amb in room -: no sob or diarrhea - Objective Resuscitation Status - Order Detail: 07/01/18 21:56 Resuscitation Status Routine Resuscitation Status: FULL: Full Resuscitation MAR Reviewed: Yes Vital Signs & Weight: Vital Signs (12 hours) Temp Pulse Resp BP BP Pulse Ox 07/04/18 08:00 98.1 F 75 20 139/79 97 07/04/18 04:00 98.0 F 75 16 161/89 H 95 Weight Weight 186 lb 9.6 oz I&O: 07/03/18 07/04/18 07/05/18 05:59 06:59 06:59 Intake Total Output Total Balance Result Diagrams: 07/02/18 06:31 07/02/18 06:31 Additional Labs: Accuchecks 07/04/18 07/04/18 07/03/18 11:07 06:42 20:49 POC Glucose 217 H 165 H 279 H 07/03/18 16:11 POC Glucose 136 H Phys Exam - Physical Examination HEENT: PERRLA, moist MMs Neck: no JVD, supple Respiratory: no wheezing, no rales Cardiovascular: RRR, no significant murmur Gastrointestinal: soft, non-tender, no distention, positive bowel sounds Musculoskeletal: no edema, pulses present Neurological: non-focal, moves all 4 limbs Psychiatric: normal affect, A&O x 3 Dx/Plan (1) UTI (urinary tract infection) Status: Acute Qualifiers: Urinary tract infection type: acute cystitis Hematuria presence: without hematuria Qualified Code(s): N30.00 - Acute cystitis without hematuria (2) SIRS (systemic inflammatory response syndrome) Code(s): R65.10 - SIRS OF NON-INFECTIOUS ORIGIN W/O ACUTE ORGAN DYSFUNCTION Status: Resolved (3) DM type 2 (diabetes mellitus, type 2) Status: Chronic Qualifiers: Diabetes mellitus custodial insulin use: without custodial use Diabetes mellitus complication status: with unspecified complications Qualified Code(s) : E11.8 - Type 2 diabetes mellitus with unspecified complications (4) Anemia Code(s): D64.9 - ANEMIA, UNSPECIFIED Status: Chronic Qualifiers: Anemia type: unspecified type Qualified Code(s): D64.9 - Anemia, unspecified (5) HTN (hypertension) Code(s): I10 - ESSENTIAL (PRIMARY) HYPERTENSION Status: Chronic Qualifiers: Hypertension type: essential hypertension Qualified Code(s): I10 - Essential (primary) hypertension (6) Dyslipidemia Code(s): E78.5 - HYPERLIPIDEMIA, UNSPECIFIED Status: Chronic (7) Hypothyroidism Code(s): E03.9 - HYPOTHYROIDISM, UNSPECIFIED Status: Chronic Qualifiers: Hypothyroidism type: unspecified Qualified Code(s): E03.9 - Hypothyroidism , unspecified (8) CAD (coronary artery disease) Code(s): I25.10 - ATHSCL HEART DISEASE OF [place] CORONARY ARTERY W/O ANG PCTRS Status: Chronic Qualifiers: Coronary Disease-Associated Artery/Lesion type: [place] artery [place] vs. transplanted heart: [place] heart Associated angina: without angina Qualified Code(s): I25.10 - Atherosclerotic heart disease of [place] coronary artery without angina pectoris - Plan hemostable -: macrobid x 4 days -: dc pt home * .
--- NOTE | 2018-07-04 16:29 | DIS ---
DATE OF ADMISSION: 07/01/2018 DATE OF DISCHARGE: 07/04/2018 DISCHARGE DISPOSITION: Home. PRIMARY DISCHARGE DIAGNOSES: Urinary tract infection with systemic inflammatory response syndrome, resolving. SECONDARY DISCHARGE DIAGNOSES: Chronic anemia; diabetes mellitus, type 2; hypertension; dyslipidemia; hypothyroidism; and coronary artery disease. PROCEDURES DONE DURING HOSPITALIZATION: Urine culture grew E coli, resistant to ampicillin and quinolones. Stool for C diff, Shiga toxin, Campylobacter were all negative. H and H 10 and 30 and platelet count 192. Discharge BUN and creatinine are 29 and 0.9. Admitting BUN and creatinine were 40 and 1.34. BNP was 772 on the day of admission. DISCHARGE MEDICATIONS: 1. Aspirin 81 mg p.o. daily. 2. Flexeril p.r.n. 3. Duloxetine 60 mg p.o. daily. 4. Escitalopram 20 mg p.o. daily. 5. Gabapentin 300 mg p.o. three times daily. 6. Metformin 1000 mg p.o. twice daily. 7. Toprol-XL 25 mg daily. 8. Protonix 40 mg daily. 9. Actos 45 mg p.o. daily. 10. Pravachol 40 mg p.o. at bedtime. 11. Macrobid 100 mg p.o. twice daily for another 4 days. ALLERGIES: ALLERGIC TO AMOXICILLIN, ASPIRIN, CELECOXIB, CLAVULANIC ACID, LEVOTHYROXINE, LYRICA, AND TRAMADOL. DISCHARGE PLAN: The patient to follow up with primary care physician in 1 week. BRIEF COURSE DURING HOSPITALIZATION: The patient initially got admitted on the with complaints of generalized body aches and back pain, and she was found to have had urinary tract infection with signs of SIRS. The patient was gently hydrated and was placed on IV antibiotics. She also had acute kidney injury, which has resolved with hydration. Her cultures grew E coli, resistant to quinolones. Prior to discharge, she was ambulating in the room and eating well. She needs to continue Macrobid for another 4 days. She is hemodynamically stable. Please see a [id number] documentation for the day of discharge on [employer]. Job ID: [id number]
== END 2018-07-04 12:10 | disposition home or self-care (01) | DRG 690 ==
LOC: ERS 16:16 → 2NO 20:29 → T4-A 07-02 12:49
PROVIDERS: ADMIT Emergency Medicine; ATTEND Emergency Medicine
DX: N39.0 Urinary tract infection, site not specified (principal); N17.9 Acute kidney failure, unspecified; I95.9 Hypotension, unspecified; D64.9 Anemia, unspecified; I10 Essential (primary) hypertension; E78.5 Hyperlipidemia, unspecified; E11.42 Type 2 diabetes mellitus with diabetic polyneuropathy; G89.29 Other chronic pain; I25.10 Atherosclerotic heart disease of native coronary artery without angina pectoris; E03.9 Hypothyroidism, unspecified; M19.90 Unspecified osteoarthritis, unspecified site; B96.20 Unspecified Escherichia coli [E. coli] as the cause of diseases classified elsewhere; Z87.440 Personal history of urinary (tract) infections; Z88.6 Allergy status to analgesic agent; Z88.5 Allergy status to narcotic agent; Z88.8 Allergy status to other drugs, medicaments and biological substances; Z88.1 Allergy status to other antibiotic agents; Z88.0 Allergy status to penicillin; Z79.84 Long term (current) use of oral hypoglycemic drugs; Z79.899 Other long term (current) drug therapy
CPT/HCPCS: 36415; 36416; 80048; 83605; 85007; 85027; 87045; 87046; 87324; 87449; 87899; J0696; J3370; J7050

== ENCOUNTER 2018-09-03 12:24 | Observation (INO) | payer MEDICARE, MEDICAID ==
--- NOTE | 2018-09-03 13:46 | RAD ---
XR Chest 1 View Portable History: [Chest pain dizziness and nausea] Comparison: Radiograph July 01, 2018 Findings: Heart size upper limits of normal. No pneumothorax. Mild chronic venous congestion. Remote right-sided rib fractures. No acute osseous abnormality. Impression: Cardiomegaly and mild pulmonary venous congestion.
[2018-09-03] MEDS ORDERED: Meclizine HCl 25 MG TAB ONE (14:02)
[2018-09-03 14:10] LABS: #Basophils 0.1 thou/uL (0.0-0.2); #Eosinphils 0.2 thou/uL (0.0-0.7); #Lymphocytes 1.8 thou/uL (1.20-3.40); #Monocytes 0.5 thou/uL (0.11-0.59); #Neutrophils 3.5 thou/uL (1.40-6.50); %Basophils 1.3 % (0.0-1.0); %Eosinophils 2.9 % (0.0-10.0); %Monocytes 8.8 % (0.0-10.0); %Neutrophils 56.9 % (42.0-75.0); Hemoglobin 11.6 g/dL (12.0-16.0); Mean Corpuscular HGB CONC 31.8 g/dL (32.0-36.0); Mean Corpuscular Hemoglobin 29.9 pg (27.0-31.0); Mean Corpuscular Volume 94.2 fL (78.0-98.0); Mean Platelet Volume 7.8 fL (7.4-10.4); Platelet Count 244 thou/uL (130-400); RBC Distribution Width 16.4 % (11.5-14.5); Red Blood Cell (RBC) Count 3.88 mill/uL (4.20-5.40); White Blood Cell (WBC) Count 6.1 thou/uL (4.8-10.8)
--- NOTE | 2018-09-03 14:23 | CT ---
CT BRAIN WITHOUT CONTRAST: HISTORY: Altered mental status. Dizziness. Nausea. COMPARISON: 02/02/2019 FINDINGS: No evidence of acute infarct, hemorrhage, midline shift, or abnormal extraaxial fluid collections is seen. The ventricular size is stable, and the basilar cisterns are patent. Changes of chronic small vessel ischemic disease are again seen. The bony calvarium is intact. The visualized paranasal sin uses are well aerated. There is continued decreased pneumatization of the mastoid air cells. IMPRESSION: No CT evidence of acute intracranial process. POS: YAW
[2018-09-03 14:30] LABS: ALT (SGPT) 13 U/L (8-55); AST (SGOT) 14 U/L (5-34); Alkaline Phosphatase 64 U/L (40-150); Anion Gap 16 mmol/L (10-20); BUN (Urea Nitrogen) 28 mg/dL (9.8-20.1); Bilirubin, Total 0.3 mg/dL (0.2-1.2); Calc. Creatinine Clearance 0 mL/min (70-130); Calcium 9.9 mg/dL (7.8-10.44); Carbon Dioxide 23 mmol/L (23-31); Chloride 102 mmol/L (98-107); Estimated GFR-MDRD 47; Globulin 3.4 g/dL (2.4-3.5); Glucose 146 mg/dL (83-110); Lipase 23 U/L (8-78); Potassium 4.2 mmol/L (3.5-5.1); Protein, Total 7.4 g/dL (6.0-8.3); Sodium 137 mmol/L (136-145)
[2018-09-03 16:35] LABS: Bilirubin Negative (Negative); Blood, Urine Trace (Negative); Clarity CLEAR (Clear); Glucose, Urine (Dipstick) >=1000 mg/dL (Negative); Leukocyte Small (Negative); Nitrite Positive (Negative); Protein, Urine (Dipstick) Negative (Neg-Trace); Specific Gravity, Urine 1.015 (1.002-1.036); Urobilinogen 0.2 mg/dL (0.2-1.0)
[2018-09-03 16:40] LABS: Bacteria/HPF 4+ HPF (None Seen); Hyaline Casts/LPF 0-3 HYALINE CAST LPF (0-3 Hyaline); Pathc Cast-AUWi Flag 0.68 (0-2.49); RBC/HPF 0-3 HPF (0-3); Squamous Epithelial None Seen HPF (0-3); WBC/HPF 21-50 HPF (0-3)
[2018-09-03] MEDS ORDERED: Ondansetron ODT 4 MG TAB PO PRN (18:17)
[2018-09-03] MEDS ORDERED: Acetaminophen 325 MG TAB PO PRN (18:17)
[2018-09-03] MEDS ORDERED: Meclizine HCl 25 MG TAB PO PRN (18:21)
[2018-09-03 18:33] VITALS: BMI 42.9
[2018-09-03] MEDS ORDERED: Dextrose 5% in Water 1,000 ML IV PRN (18:33)
[2018-09-03] MEDS ORDERED: Dextrose 50% Abboject 50 ML SYRINGE SLOW IVP PRN (18:33)
[2018-09-03] MEDS ORDERED: HumaLOG 300 UNITS/3 ML VIAL SC PRN (18:33)
[2018-09-03] MEDS: Famotidine 20 MG TAB PO SCH (21:48)
[2018-09-03] MEDS: Preparation H HC 1% Cream 26 GM TUBE TOP SCH (21:48)
--- NOTE | 2018-09-04 01:41 | HP ---
CHIEF COMPLAINT: Dizziness. HISTORY OF PRESENT ILLNESS: Ms. Tejada is an 83-year-old [place]an-speaking only female, who presented to the [facility] with complaints of dizziness. Her symptoms began today while she was at a clinic visit with her urologist, Dr. Santillan. She describes her dizziness as if the room is spinning, and she "loses control of her body" and feels that she cannot ambulate. She denies any syncope. The patient denies any associated symptoms. She denies chest pain, shortness of breath, palpitations, or headache. She denies any symptoms of focal weakness, numbness, or lightheadedness. Because of her symptoms, she was sent to the ED for further workup and treatment. On arrival to the ED, physical exam was significant for noted nystagmus. CT of her brain was negative for any acute intracranial abnormalities. Her chest x-ray showed mild pulmonary venous congestion. Her EKG showed normal sinus rhythm, no acute ST or T-wave changes. No interventricular conduction delays or bradycardia. She is being admitted to the hospitalist service for observation and CVA rule out. The patient was being seen by her urologist for recurrent UTIs. The patient was recently hospitalized at this facility July 01, 2018 through July 04, 2018 with UTI. At that visit, culture was positive for Enterobacter cloacae and presumptive Proteus mirabilis. Both susceptible to Macrobid, which she was discharged on and she did complete that course of antibiotics. Her UA at this hospitalization does appear positive for UTI with 4+ bacteria, leukocyte esterase, and nitrite positive, along with positive wbc's. The patient denies any dysuria at this time. REVIEW OF SYSTEMS: A 12-point review of systems was performed and is negative except that stated above. The patient specifically denies any recent cough, cold or flu symptoms. She denies any fever or chills. Review of systems is positive for chronic hemorrhoids, which she does say bleed from time to time. She has had a hemorrhoidectomy in the past. PAST MEDICAL HISTORY: 1. 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 2. Recurrent urinary tract infections. 3. Hypertension. 4. Dyslipidemia. 5. Coronary artery disease. 6. Type 2 diabetes mellitus, on oral hypoglycemics. 7. Peripheral neuropathy. 8. Osteoarthritis. 9. History of spinal stenosis. PAST SURGICAL HISTORY: 1. Appendectomy. 2. Cholecystectomy. 3. Hysterectomy. 4. Back surgery. 5. Hemorrhoidectomy. ALLERGIES: AMOXICILLIN, ASPIRIN, CELECOXIB, CLAVULANIC ACID, LEVOTHYROXINE, PREGABALIN, AND TRAMADOL. WE WILL NEED TO VERIFY ALLERGIES FURTHER ASPIRIN AND LEVOTHYROXINE ARE LISTED ON HER HOME MEDICATIONS. FAMILY HISTORY: Positive for diabetes and coronary artery disease. SOCIAL HISTORY: The patient lives in [place], and lives independently with a part-time caregiver. No alcohol, tobacco, or illicit drug use. She uses a rolling walker to ambulate. HOME MEDICATIONS: 1. Aspirin 81 mg daily. 2. Invokana 100 mg p.o. daily. 3. Cymbalta 60 mg p.o. daily. 4. Escitalopram 20 mg p.o. daily. 5. Gabapentin 600 mg p.o. t.i.d. 6. Levothyroxine 50 mcg p.o. daily. 7. Metformin 1000 mg p.o. b.i.d. 8. Toprol-XL 50 mg p.o. daily. 9. Protonix 40 mg p.o. daily. 10. Actos 45 mg p.o. daily. 11. Pravastatin 40 mg p.o. at bedtime. 12. Prednisone 5 mg p.o. daily. PHYSICAL EXAMINATION: VITAL SIGNS: Blood pressure 160/70, pulse 65, temperature 97.9, O2 saturation is 99% on room air. GENERAL: The patient is a moderately obese female in no acute distress. She is resting comfortably in bed. HEENT: Head atraumatic and normocephalic. Mucous membranes are moist. The patient has a very mild right facial droop, which is chronic. NECK: Supple. No lymphadenopathy. No carotid bruits. Trachea is midline. CV: S1 and S2. Regular rate and rhythm. No appreciable murmurs, rubs, or gallops. LUNGS: Regular respiratory rate and pattern, overall clear to auscultation bilaterally. ABDOMEN: Soft. Positive bowel sounds. Moderately obese. Nontender. EXTREMITIES: No lower extremity pitting edema. +2 DP pulses bilaterally. Both lower extremities are warm and well perfused. SKIN: Warm and dry. No obvious rashes. NEUROLOGIC: The patient is alert, awake, and oriented x3. Cranial nerves 2 through 12 are intact. The patient has no focal weaknesses. LABORATORY DATA: WBC 6.1, hemoglobin 11.6, hematocrit 36.6, MCV 94.2, platelets are 244. Sodium 137, potassium 4.2, chloride 102, anion gap 16, BUN 28, creatinine 1.12, glucose is 134. AST, ALT, and alkaline phosphatase all within normal limits. Troponin was negative. Urinalysis positive for nitrite, 4+ bacteria, leukocyte esterase, and white blood cell. ASSESSMENT: 1. Dizziness and nystagmus consistent with vertigo/benign paroxysmal positional vertigo, improved since arrival. 2. History of cerebrovascular accident with very mild right residual facial deficit/droop. 3. Recurrent urinary tract infections. 4. Coronary artery disease, followed by Dr. Will. 5. Type 2 diabetes mellitus, on oral hypoglycemics including Invokana. 6. Hemorrhoids. PLAN: We will admit the patient for observation and CVA rule out. We will obtain an MRI to rule out vertebrobasilar CVA. We will give the patient scheduled meclizine in hopes that this improves her symptoms. Given her positive urinalysis today, we will go ahead and start antibiotic therapy with ciprofloxacin, which the last culture was susceptible to. At this time, my thoughts are that the Invokana needs to be held indefinitely given her recurrent UTIs. We will await MRI results. The patient does have an outpatient followup with Dr. Santillan regarding her UTIs. At this time, the patient does not have a white count and is afebrile. Further recommendations based on hospital course. The care of this patient has been discussed with Dr. Beltrán who agrees with the above. Job ID: [id number]
[2018-09-04 05:34] VITALS: TEMP 98.1
[2018-09-04 06:05] LABS: Anion Gap 13 mmol/L (10-20); BUN (Urea Nitrogen) 27 mg/dL (9.8-20.1); Calc. Creatinine Clearance 55 mL/min (70-130); Calcium 9.6 mg/dL (7.8-10.44); Carbon Dioxide 23 mmol/L (23-31); Chloride 105 mmol/L (98-107); Estimated GFR-MDRD 52; Glucose 137 mg/dL (83-110); Potassium 4.4 mmol/L (3.5-5.1); Sodium 137 mmol/L (136-145)
[2018-09-04] MEDS ORDERED: Prevnar 13-Val Conj/PF 0.5 ML SYRINGE IM ONE (09:00)
[2018-09-04] MEDS ORDERED: Meclizine HCl 25 MG TAB PO SCH (09:00)
[2018-09-04] MEDS ORDERED: Ciprofloxacin 500 MG TAB PO SCH (09:00)
[2018-09-04 09:27] LABS: #Eosinphils 0.2 thou/uL (0.0-0.7); #Lymphocytes 1.5 thou/uL (1.20-3.40); #Monocytes 0.5 thou/uL (0.11-0.59); #Neutrophils 3.2 thou/uL (1.40-6.50); %Basophils 0.2 % (0.0-1.0); %Lymphocytes 27.4 % (21.0-51.0); %Monocytes 9.3 % (0.0-10.0); %Neutrophils 60.2 % (42.0-75.0); Mean Corpuscular HGB CONC 32.1 g/dL (32.0-36.0); Mean Corpuscular Volume 93.6 fL (78.0-98.0); Mean Platelet Volume 7.5 fL (7.4-10.4); Platelet Count 251 thou/uL (130-400); RBC Distribution Width 16.1 % (11.5-14.5); White Blood Cell (WBC) Count 5.4 thou/uL (4.8-10.8)
[2018-09-04] MEDS: Famotidine 20 MG TAB PO SCH (09:33)
[2018-09-04] MEDS: Preparation H HC 1% Cream 26 GM TUBE TOP SCH (09:34)
[2018-09-04 09:44] LABS: ALT (SGPT) 13 U/L (8-55); AST (SGOT) 15 U/L (5-34); Alkaline Phosphatase 65 U/L (40-150); Anion Gap 15 mmol/L (10-20); BUN (Urea Nitrogen) 25 mg/dL (9.8-20.1); Bilirubin, Total 0.4 mg/dL (0.2-1.2); Calc. Creatinine Clearance 49 mL/min (70-130); Carbon Dioxide 25 mmol/L (23-31); Chloride 102 mmol/L (98-107); Estimated GFR-MDRD 45; Globulin 3.4 g/dL (2.4-3.5); Glucose 165 mg/dL (83-110); Potassium 4.2 mmol/L (3.5-5.1); Protein, Total 7.4 g/dL (6.0-8.3); Sodium 138 mmol/L (136-145)
[2018-09-04] MEDS ORDERED: cloNIDine 0.1 MG TAB PO PRN (10:16)
[2018-09-04] MEDS ORDERED: hydrALAZINE 20 MG/ML VIAL SLOW IVP PRN (10:16)
[2018-09-04 10:46] VITALS: BP 188/84
--- NOTE | 2018-09-04 12:29 | MRI ---
MRI Brain WO Con: 09/04/2018 12:00 AM CLINICAL HISTORY: Vertigo and dizziness. TECHNIQUE: Multiplanar, multisequence images were obtained of the brain. COMPARISON: CT brain without contrast dated September 03, 2018 FINDINGS: Motion artifact limits image detail. Extra axial spaces: Normal in size and morphology for the patient's age. Hemorrhage: None. Ventricular system: Normal in size and morphology for the patient's age. Basal cisterns: Normal. Cerebral parenchyma: There is moderate chronic small vessel white matter ischemic change.. Midline shift: None. Cerebellum: Normal. Brainstem: Normal. OTHER: Calvarium: Normal. Vascular system: Appropriate flow voids are seen within the major intracranial vessels.. Visualized Paranasal sinuses: Clear. Visualized Orbits: The [place] lenses have been replaced. Visualized upper cervical spine: Normal. Sella and skull base: Normal. IMPRESSION: No acute intracranial abnormality.
== END 2018-09-04 16:08 | disposition home or self-care (01) ==
LOC: ERS 12:24 → 2SE 16:54
PROVIDERS: ADMIT Internal Medicine; ATTEND Internal Medicine
DX: H55.00 Unspecified nystagmus (principal); R42 Dizziness and giddiness; I10 Essential (primary) hypertension; E78.5 Hyperlipidemia, unspecified; I25.10 Atherosclerotic heart disease of native coronary artery without angina pectoris; E11.42 Type 2 diabetes mellitus with diabetic polyneuropathy; M19.90 Unspecified osteoarthritis, unspecified site; E03.9 Hypothyroidism, unspecified; F32.9 Major depressive disorder, single episode, unspecified; G47.33 Obstructive sleep apnea (adult) (pediatric); K21.9 Gastro-esophageal reflux disease without esophagitis; F17.200 Nicotine dependence, unspecified, uncomplicated; Z79.52 Long term (current) use of systemic steroids; Z79.82 Long term (current) use of aspirin; Z79.84 Long term (current) use of oral hypoglycemic drugs; Z79.899 Other long term (current) drug therapy; Z88.0 Allergy status to penicillin; Z88.5 Allergy status to narcotic agent; Z88.8 Allergy status to other drugs, medicaments and biological substances; Z86.73 Personal history of transient ischemic attack (TIA), and cerebral infarction without residual deficits
CPT/HCPCS: 51701; 70450; 70551; 71045; 80048; 80053 ×2; 81001; 82962 ×2; 83605; 83690; 84484; 85025 ×2; 87077; 87086; 87186; 93005; 94760; 97139; 99285; G0378 ×2; 36415; 36416; 81015; A4353; J8499

== ENCOUNTER 2018-10-18 11:00 | Outpatient (CLI) | payer MEDICARE, MEDICAID ==
--- NOTE | 2018-10-18 12:21 | ULT ---
US Renal Bilateral STANDARD History: Recurrent urinary tract infections Comparison: None. Findings: Real-time grayscale and color evaluation of the kidneys and urinary bladder was performed. Right kidney measures 9.2 x 5.4 x 6.8 cm and the left kidney measures 8.8 x 4.9 x 6.1 cm. Prevoid uri nary bladder volume is 203 mL. No renal mass, hydronephrosis, or abnormal calcifications. Impression: No evidence for obstructive uropathy.
== END 2018-10-18 11:01 | disposition home or self-care (01) ==
LOC: ULT 11:00
PROVIDERS: ATTEND Urology
DX: R80.8 Other proteinuria (principal); R81 Glycosuria; Z87.440 Personal history of urinary (tract) infections
CPT/HCPCS: 76770

== ENCOUNTER 2018-11-10 03:06 | Inpatient (IN) | payer MEDICARE, MEDICAID ==
[2018-11-10 05:42] LABS: Troponin I Less than 0.010 ng/mL (< 0.028)
[2018-11-10 08:33] LABS: Troponin I Less than 0.010 ng/mL (< 0.028)
[2018-11-10 10:30] LABS: #Eosinphils 0.1 thou/uL (0.0-0.7); #Lymphocytes 1.8 thou/uL (1.20-3.40); #Monocytes 0.6 thou/uL (0.11-0.59); #Neutrophils 3.4 thou/uL (1.40-6.50); %Basophils 0.7 % (0.0-1.0); %Eosinophils 1.9 % (0.0-10.0); %Neutrophils 57.3 % (42.0-75.0); Hemoglobin 10.5 g/dL (12.0-16.0); Mean Corpuscular HGB CONC 32.2 g/dL (32.0-36.0); Mean Corpuscular Hemoglobin 30.7 pg (27.0-31.0); Mean Corpuscular Volume 95.2 fL (78.0-98.0); Mean Platelet Volume 7.7 fL (7.4-10.4); Platelet Count 217 thou/uL (130-400); Red Blood Cell (RBC) Count 3.43 mill/uL (4.20-5.40); White Blood Cell (WBC) Count 5.9 thou/uL (4.8-10.8)
[2018-11-10] MEDS ORDERED: HumaLOG 300 UNITS/3 ML VIAL SC PRN (10:30)
[2018-11-10] MEDS ORDERED: Dextrose 50% Abboject 50 ML SYRINGE SLOW IVP PRN (10:30)
[2018-11-10] MEDS ORDERED: Acetaminophen 325 MG TAB PO PRN (10:30)
[2018-11-10] MEDS ORDERED: Dextrose 5% in Water 1,000 ML IV PRN (10:30)
[2018-11-10] MEDS ORDERED: Nitroglycerin 0.4 MG TAB (25 Tab Bottle) SL PRN (10:34)
[2018-11-10 10:48] LABS: ALT (SGPT) 215 U/L (8-55); AST (SGOT) 200 U/L (5-34); Albumin 4.1 g/dL (3.4-4.8); Alkaline Phosphatase 144 U/L (40-150); Anion Gap 15 mmol/L (10-20); BUN (Urea Nitrogen) 27 mg/dL (9.8-20.1); Bilirubin, Total 0.5 mg/dL (0.2-1.2); Calc. Creatinine Clearance 51 mL/min (70-130); Calcium 9.6 mg/dL (7.8-10.44); Carbon Dioxide 27 mmol/L (23-31); Chloride 98 mmol/L (98-107); Estimated GFR-MDRD 47; Globulin 3.2 g/dL (2.4-3.5); Glucose 117 mg/dL (83-110); Protein, Total 7.3 g/dL (6.0-8.3); Sodium 136 mmol/L (136-145)
[2018-11-10] MEDS ORDERED: Polyethylene Glycol OPTH DROP 15 ML BOT EA EYE PRN (11:13)
--- NOTE | 2018-11-10 12:07 | HP ---
CHIEF COMPLAINT: Difficulty breathing. HISTORY OF PRESENT ILLNESS: This is an 83-year-old [place] African speaking female with coronary artery disease; history of hypertension; dyslipidemia; type 2 diabetes; hypothyroidism; chronic intermittent oxygen use; depression; chronic kidney disease, stage 3; who presents to the emergency room at [facility] for substernal chest pain. The patient reports intermittent symptoms over the past six months. She states yesterday at 10 a.m., she had the onset of chest pain, described as tightness in the substernal area without radiation. It occurred at both rest and with exertion, was associated with nausea and vomiting, as well as shortness of breath. There was no change with using her home oxygen, and because of the persistence of symptoms, she presented to the emergency room. She denies any prior history, denies any palpitations or cough. She does have a manufacturing development engineer, Dr. Will and had a recent visit. She denies any prior history related to her heart. She denies any prior history of similar symptoms. [facility]: Furosemide 40 mg IV, nitroglycerin 0.4 mg, ondansetron 4 mg IV, aspirin 324 mg and transferred to this facility. PAST MEDICAL HISTORY: 1. History of stroke with some residual deficits. 2. Recurrent UTI. 3. Hypertension. 4. Dyslipidemia. 5. Type 2 diabetes. 6. Coronary artery disease. 7. Peripheral neuropathy. 8. Osteoarthritis with bilateral shoulder pain. 9. Spinal stenosis. 10. Chronic kidney disease, stage 3. PAST SURGICAL HISTORY: Appendectomy, cholecystectomy, hysterectomy, back surgery, and hemorrhoidectomy. ALLERGIES: MULTIPLE AND INCLUDE; 1. AMOXICILLIN. 2. ANACIN. 3. ASPIRIN, ALTHOUGH THE PATIENT IS ON A DAILY ASPIRIN AT HOME. 4. CELEBREX. 5. AUGMENTIN. 6. LEVOTHYROXINE, ALTHOUGH THE PATIENT IS ON LEVOTHYROXINE AT HOME, I AM UNCERTAIN OF WHY IT STATES THAT. 7. LYRICA. 8. TRAMADOL. CURRENT MEDICATIONS: Reconciled with the patient and the bottles and they are; 1. Aspirin 81 mg daily. 2. Gabapentin 300 mg t.i.d. 3. Levothyroxine 50 mcg daily. 4. Metformin 1000 mg b.i.d. 5. Pravastatin 40 mg at bedtime. 6. Actos 45 mg daily. 7. Escitalopram 20 mg daily. 8. Toprol-XL 50 mg daily. 9. Ibandronate, although states she does not take anymore. 10. Duloxetine 60 mg daily. REVIEW OF SYSTEMS: Positive for constipation, nausea, vomiting, anorexia, dizziness, 10-pound weight loss, paresthesias in her 4th and 5th fingers on the left side as well as paresthesias in her lower extremities. Negative for palpitations, cough, or change in urine function. All remaining review of systems are reviewed and negative. SOCIAL HISTORY: The patient denies alcohol or tobacco, she walks with a walker , her surrogate decision maker is any of her children, she states Eliecer would be the first point of contact, her son. She is a full code. FAMILY HISTORY: Significant for diabetes and coronary artery disease. PHYSICAL EXAMINATION: VITAL SIGNS: Blood pressure 179/79, pulse 57, respirations 18, temperature 97.8 , saturations 98% on room air. GENERAL: Awake, alert, responsive, in no apparent distress. Able to speak in full sentences. HEENT: Her pupils are equal and round. No scleral icterus. Oral mucosa is pink and moist. NECK: Supple, nontender. LYMPHATICS: No palpable cervical or supraclavicular lymphadenopathy. LUNGS: Bibasilar rales. No audible wheezing or rhonchi. HEART: Normal S1 and S2. Regular rate. No significant murmur. ABDOMEN: Soft. Present bowel sounds. Nontender, nondistended. EXTREMITIES: 1+ pitting edema and tenderness to palpation in bilateral tibia without palpable defects. VASCULAR: 2+ dorsalis pedis pulses. NEUROLOGIC: She has some facial drooping on the left side, no other gross deficits noted. PSYCHIATRIC: Appears euthymic. SKIN: No visible rashes. [facility] FINDINGS AND TEST RESULTS: EKG personally reviewed, sinus rhythm, normal axis, normal intervals with a 1.8-second pause, QTc of 469, no ST changes, and bradycardic with a rate of 48. Chest x-ray personally reviewed, vascular congestion consistent with CHF. Labs are reviewed. CBC; 5.9, 10.5, 32.7, 217. Chemistry; 133, 5.3, 101, 20, 30, 1.25, 186. LFTs; AST 347, ALT 248, total bilirubin 0.4, alkaline phosphatase 131. BNP 1071. IMPRESSION: 1. New diagnosis of heart failure, uncertain type, based on symptoms, elevated BNP, elevated LFTs. 2. Bradycardia in a patient on a long-acting beta lauren. 3. Anemia, acute on chronic, unknown etiology. 4. Hyponatremia, consistent with hypervolemia from heart failure. 5. Hyperkalemia, unknown etiology. 6. Chronic kidney disease, stage 3, stable. 7. Elevated LFTs as noted above. 8. Diabetes mellitus, type 2, uncertain etiology. 9. Hypothyroidism. 10. Dyslipidemia. 11. Known coronary artery disease. 12. Peripheral neuropathy. PLAN: 1. Admission to the hospital. 2. Telemetry monitoring. Continuing diuresis. Obtain echo and Cardiology consult. 3. Hold on her metoprolol and monitor her rate. 4. Monitor her electrolytes to include the hyperkalemia with a repeat pending now. 5. Monitor her LFTs. Obtain an ultrasound of her liver. 6. Follow her renal function. 7. Holding her home metoprolol as well as the Actos. One possible side effect of Actos, but this may be a precipitant for current condition. 8. Obtain records from her manufacturing development engineer, Dr. Will. 9. Check a TSH, fecal occult blood test, check vitamin/iron studies. 10. Continuing her other home medications of daily aspirin, Cymbalta, escitalopram, gabapentin, pravastatin. 11. Heart healthy, fluid restricted, carb consistent diet. 12. DVT prophylaxis with pneumatic compression devices. 13. GI prophylaxis not indicated. 14. Code status is full. Surrogate decision maker is the patient's son as noted above. The patient is at high risk, given age, comorbidities, and current presentation. Reviewed the plan of care with the patient through the hospital industrial plant custodian. No questions or further needs at end of evaluation. Job ID: [id number] MTDD
[2018-11-10] MEDS ORDERED: Communication Order-Pharmacy FS SCH (15:15)
[2018-11-10] MEDS: Furosemide 40 MG/4 ML VIAL SLOW IVP SCH (15:27)
[2018-11-10] MEDS: Gabapentin 300 MG CAP PO SCH ×2 (15:27→20:46)
--- NOTE | 2018-11-10 17:31 | CON ---
DATE OF CONSULTATION: HISTORY OF PRESENT ILLNESS: The patient is an 83-year-old woman with a history of coronary artery disease, who presents with recurrent chest discomfort. The patient has apparent history of coronary artery disease. She has been on medical therapy. She is followed primarily by Dr. Will. Terrell has been reporting having midsternal chest discomfort. She recently underwent a PET scan by Dr. Will, which revealed no evidence of ischemia. She presented to the hospital with recurrent chest discomfort. She reports having midsternal chest pain. She went to the local emergency room and received nitroglycerin with resolution of her chest discomfort. PAST MEDICAL HISTORY: Significant for; 1. Coronary artery disease. 2. Hypertension. 3. Dyslipidemia. 4. Peripheral neuropathy. 5. History of CVA. PAST SURGICAL HISTORY: Appendectomy, cholecystectomy, hysterectomy, back surgery, and hemorrhoidectomy. ALLERGIES: SHE IS ALLERGIC TO CELEBREX, AMOXICILLIN, AUGMENTIN, SYNTHROID. MEDICATIONS: Include: 1. Aspirin 81 daily. 2. Pravachol 40 daily. 3. Actos 45 daily. 4. Metformin 1000 b.i.d. 5. Synthroid 50 daily. 6. Toprol 50 XL daily. 7. Duloxetine 60 mg daily. SOCIAL HISTORY: Nonsmoker. FAMILY HISTORY: Positive family history of coronary artery disease. REVIEW OF SYSTEMS: 10-point system otherwise unremarkable. PHYSICAL EXAMINATION: GENERAL: This is an obese woman, in no acute distress. VITAL SIGNS: Blood pressure of 189/83. NECK: Showed no jugular venous distention. LUNGS: Clear to auscultation. HEART: Regular rate and rhythm. Normal S1 and S2. No murmurs. ABDOMEN: Distended. EXTREMITIES: Show no edema. VASCULAR: Radial pulses are 2+. LABORATORY RESULTS: Her sodium is 136, potassium 4.0, chloride 98, bicarbonate 27, BUN 27, creatinine 1.1, her AST was 200. Her white blood cell count is 5.9, hemoglobin 10.5, hematocrit 32.7, platelets were 217. EKG revealed marked sinus bradycardia, otherwise normal ECG. IMPRESSION: 1. Chest pain suggestive of angina. 2. History of coronary artery disease. 3. Hypertension. 4. Bradycardia. 5. Elevated LFTs. 6. Diabetes mellitus. 7. Dyslipidemia. This patient presents with recurrent chest pain. She underwent a recent stress test revealed no ischemia. Because of her risk factors and history of coronary artery disease, I would recommend proceeding with cardiac catheterization and make sure there is no evidence of progressive coronary artery disease. The risks involved in the procedure have been explained to the patient, who wishes to proceed. PLAN: 1. Discontinue metoprolol. 2. Start lipid-lowering medication. 3. Continue IV Lasix. Job ID: [id number]
[2018-11-10] MEDS ORDERED: Atorvastatin Calcium 10 MG TAB PO SCH (21:00)
[2018-11-11] MEDS: Furosemide 40 MG/4 ML VIAL SLOW IVP SCH (06:20)
[2018-11-11] MEDS: Aspirin 81 mg Enteric Coated Tablet PO SCH (06:21)
[2018-11-11] MEDS: DULoxetine 60 MG CAP PO SCH (06:21)
[2018-11-11] MEDS: Escitalopram Oxalate 20 mg Tablet PO SCH (06:21)
[2018-11-11] MEDS: Gabapentin 300 MG CAP PO SCH ×3 (06:21→20:35)
[2018-11-11] MEDS: Levothyroxine Sodium 50 MCG TAB PO SCH (06:21)
[2018-11-11 06:35] LABS: #Eosinphils 0.1 thou/uL (0.0-0.7); #Lymphocytes 1.4 thou/uL (1.20-3.40); #Monocytes 0.6 thou/uL (0.11-0.59); #Neutrophils 3.9 thou/uL (1.40-6.50); %Basophils 0.2 % (0.0-1.0); %Eosinophils 2.3 % (0.0-10.0); %Monocytes 9.5 % (0.0-10.0); Hemoglobin 11.4 g/dL (12.0-16.0); Mean Corpuscular HGB CONC 32.7 g/dL (32.0-36.0); Mean Corpuscular Hemoglobin 31.3 pg (27.0-31.0); Mean Corpuscular Volume 95.7 fL (78.0-98.0); Mean Platelet Volume 7.9 fL (7.4-10.4); Platelet Count 228 thou/uL (130-400); RBC Distribution Width 14.9 % (11.5-14.5); Red Blood Cell (RBC) Count 3.66 mill/uL (4.20-5.40)
[2018-11-11 06:54] LABS: ALT (SGPT) 151 U/L (8-55); AST (SGOT) 73 U/L (5-34); Alkaline Phosphatase 128 U/L (40-150); Anion Gap 17 mmol/L (10-20); BUN (Urea Nitrogen) 29 mg/dL (9.8-20.1); Bilirubin, Direct 0.2 mg/dL (0.1-0.3); Bilirubin, Total 0.5 mg/dL (0.2-1.2); Calc. Creatinine Clearance 42 mL/min (70-130); Calcium 9.7 mg/dL (7.8-10.44); Carbon Dioxide 28 mmol/L (23-31); Chloride 96 mmol/L (98-107); Estimated GFR-MDRD 40; Glucose 158 mg/dL (83-110); Iron 41 ug/dL (50-170); Potassium 3.8 mmol/L (3.5-5.1); Protein, Total 7.3 g/dL (6.0-8.3); Sodium 137 mmol/L (136-145)
[2018-11-11] MEDS ORDERED: Lidocaine 1% (PF) 30 ML VIAL ONE (07:01)
[2018-11-11 07:12] LABS: Ferritin 48.42 ng/mL (10-291); Thyroid Stimulating Hormone 2.2128 uIU/mL (0.35-4.94)
--- NOTE | 2018-11-11 07:35 | ULT ---
GALLBLADDER ULTRASOUND: Date: 11/11/18 INDICATION: Elevation of liver function enzymes. FINDINGS: There is no focal hepatic lesion. The gallbladder is surgically absent. No ascites or biliary ductal dilatation. IMPRESSION: 1. Status post cholecystectomy. 2. No acute abnormalities in the right upper quadrant. POS: NWK
[2018-11-11 08:23] LABS: Folate (Folic Acid) 32.8 ng/mL (7.0-31.4)
[2018-11-11] MEDS ORDERED: Nitroglycerin 0.4 MG TAB (25 Tab Bottle) SL PRN (08:48)
[2018-11-11] MEDS ORDERED: Sodium Chloride 0.9% 200 ML IV PRN (08:48)
[2018-11-11] MEDS ORDERED: hydrALAZINE 20 MG/ML VIAL ONE (08:56)
[2018-11-11] MEDS ORDERED: Nitroglycerin 4.9 GM Bottle ONE (08:56)
[2018-11-11] MEDS ORDERED: Iopamidol 370 76% 100 ML VIAL ONE (12:32)
[2018-11-11] MEDS: HumaLOG 300 UNITS/3 ML VIAL SC PRN (18:07)
[2018-11-11] MEDS ORDERED: Clopidogrel Bisulfate 300 MG TAB PO SCH (21:00)
[2018-11-11] MEDS ORDERED: Atorvastatin Calcium 40 MG TAB PO SCH (21:00)
--- NOTE | 2018-11-11 21:13 | PRG ---
DATE OF SERVICE: 11/11/2018 PRIMARY GIS CONSULTANT: Dr. Will. SUBJECTIVE: The patient is an 83-year-old female with coronary artery disease, hypertension, diabetes mellitus type 2, dyslipidemia, presented to the hospital with shortness of breath. Her workup was consistent with new onset congestive heart failure. BNP in the emergency room was 1071 with abnormal LFTs, creatinine of 1.25 with BUN 30, and potassium of 5.3. She was admitted to telemetry unit. She was started on IV Lasix. She underwent cardiac catheterization earlier today. She denies any chest discomfort at this time. She continues to have shortness of breath. Telemetry monitoring by my review showed sinus rhythm. CURRENT MEDICATIONS: Reviewed. The patient is on: 1. Aspirin. 2. Lipitor. 3. Plavix. 4. Cymbalta. 5. Lasix. 6. Imdur. 7. Levothyroxine. PHYSICAL EXAMINATION: VITAL SIGNS: Temperature 98.3, pulse rate of 87, respirations of 20, blood pressure 121/58, and O2 saturation 95% on room air. GENERAL: An 83-year-old female, in no apparent distress. LUNGS: Showed bibasilar rales with scattered rhonchi. No accessory muscle use. No significant wheezing. HEART: S1 and S2 present. Regular rate and rhythm. No rubs or gallops. ABDOMEN: Soft and nontender. Bowel sounds present. No rebound or guarding. EXTREMITIES: No edema or calf tenderness. NEUROLOGY: Grossly nonfocal. PSYCHIATRIC: Alert, awake, and oriented x3. Normal affect. LABORATORY FINDINGS: Creatinine 1.29 with BUN 29. TSH was normal. AST has improved to 73 from 347, ALT 151 from 248. Stool for occult blood was negative. Echocardiogram showed left ventricular ejection fraction 55% to 60% with diastolic dysfunction. Chest x-ray by my review was consistent with pulmonary vascular congestion. Abdominal ultrasound was negative for acute findings. IMPRESSION: 1. Acute on chronic diastolic heart failure exacerbation. 2. Coronary artery disease. Metoprolol on hold due to bradycardia. 3. Abnormal LFTs secondary to passive hepatic congestion. 4. Diabetes mellitus, type 2. 5. Dyslipidemia. 6. Peripheral neuropathy. 7. History of cerebrovascular accident. 8. Depression, mild, stable. PLAN: The patient will be monitored on the telemetry unit. She has been started on Plavix. She underwent cardiac catheterization. Official report is pending at this time. No interventions were performed. We will continue aspirin along with Imdur. IV Lasix has been discontinued. We will recheck electrolytes in a.m. Cardiac rehabilitation. The patient was counseled on congestive heart failure. We will add fluid restriction. Plan of care was discussed with the patient in detail. She stated understanding. Job ID: [id number] MTDD
[2018-11-12 04:38] VITALS: BMI 39.4
[2018-11-12 05:24] LABS: #Eosinphils 0.1 thou/uL (0.0-0.7); #Lymphocytes 1.8 thou/uL (1.20-3.40); #Monocytes 0.9 thou/uL (0.11-0.59); #Neutrophils 4.6 thou/uL (1.40-6.50); %Basophils 0.2 % (0.0-1.0); %Eosinophils 1.2 % (0.0-10.0); %Lymphocytes 24.7 % (21.0-51.0); %Monocytes 11.4 % (0.0-10.0); %Neutrophils 62.5 % (42.0-75.0); Hemoglobin 11.2 g/dL (12.0-16.0); Mean Corpuscular HGB CONC 32.4 g/dL (32.0-36.0); Mean Corpuscular Hemoglobin 30.9 pg (27.0-31.0); Mean Corpuscular Volume 95.4 fL (78.0-98.0); Mean Platelet Volume 7.6 fL (7.4-10.4); Platelet Count 270 thou/uL (130-400); RBC Distribution Width 14.9 % (11.5-14.5); Red Blood Cell (RBC) Count 3.62 mill/uL (4.20-5.40); White Blood Cell (WBC) Count 7.4 thou/uL (4.8-10.8)
[2018-11-12 05:53] LABS: ALT (SGPT) 105 U/L (8-55); AST (SGOT) 31 U/L (5-34); Albumin 3.9 g/dL (3.4-4.8); Alkaline Phosphatase 116 U/L (40-150); Anion Gap 19 mmol/L (10-20); BUN (Urea Nitrogen) 34 mg/dL (9.8-20.1); Bilirubin, Total 0.8 mg/dL (0.2-1.2); Calc. Creatinine Clearance 33 mL/min (70-130); Calcium 9.3 mg/dL (7.8-10.44); Carbon Dioxide 26 mmol/L (23-31); Chloride 94 mmol/L (98-107); Estimated GFR-MDRD 31; Globulin 3.4 g/dL (2.4-3.5); Glucose 200 mg/dL (83-110); Magnesium 1.5 mg/dL (1.6-2.6); Potassium 3.7 mmol/L (3.5-5.1); Protein, Total 7.3 g/dL (6.0-8.3); Sodium 135 mmol/L (136-145)
[2018-11-12] MEDS ORDERED: Magnesium Sulfate 2 GM in Sodium Chloride 0.9% 100 ML IVPB SCH (08:15)
[2018-11-12] MEDS ORDERED: Magnesium 2 GM/50 ML 2 GM in Premix Bag 1 BAG IVPB SCH (08:30)
[2018-11-12] MEDS ORDERED: Clopidogrel Bisulfate 75 MG TAB PO SCH (09:00)
[2018-11-12] MEDS: DULoxetine 60 MG CAP PO SCH (09:16)
[2018-11-12] MEDS: Aspirin 81 mg Enteric Coated Tablet PO SCH (09:16)
[2018-11-12] MEDS: Gabapentin 300 MG CAP PO SCH ×2 (09:16→14:55)
[2018-11-12] MEDS: Levothyroxine Sodium 50 MCG TAB PO SCH (09:17)
[2018-11-12] MEDS: Escitalopram Oxalate 20 mg Tablet PO SCH (09:17)
[2018-11-12] MEDS ORDERED: glipiZIDE 5 MG TAB PO SCH (11:30)
[2018-11-12 11:41] VITALS: TEMP 97.9
[2018-11-12] MEDS: HumaLOG 300 UNITS/3 ML VIAL SC PRN (11:41)
[2018-11-12 12:31] VITALS: BP 139/67
[2018-11-12] MEDS ORDERED: Acetaminophen 325 MG TAB PO PRN (14:41)
[2018-11-13] MEDS ORDERED: glipiZIDE 5 MG TAB PO SCH (07:30)
--- NOTE | 2018-11-13 14:07 | EKG ---
Test Reason : CP Blood Pressure : / mmHG Vent. Rate : 048 BPM Atrial Rate : 048 BPM P-R Int : 102 ms QRS Dur : 072 ms QT Int : 526 ms P-R-T Axes : 004 -07 045 degrees QTc Int : 469 ms Marked sinus bradycardia with marked sinus arrhythmia with short [place] Abnormal ECG Confirmed by CARLEE WOODRUFF ([id number]), sound editor RICHARD CARRASCO ([id number]) on 11/13/2018 2:07:27 PM Referred By: Confirmed By:CARLEE WOODRUFF
--- NOTE | 2018-11-15 08:06 | DIS ---
DATE OF ADMISSION: 11/10/2018 DATE OF DISCHARGE: 11/12/2018 DISCHARGE DISPOSITION: Home. FOLLOWUP: 1. Follow up with primary care physician, Dr. Ramesh, in 1 week. 2. Follow up with Dr. Will in 1 to 2 weeks. 3. [facility] has been arranged. The patient was seen and examined on the day of discharge. Denies any new complaints. No chest pain, shortness of breath, or palpitations. DISCHARGE MEDICATIONS: 1. Isosorbide mononitrate 30 mg daily. 2. Plavix 75 mg daily. 3. Lipitor 40 mg at bedtime. 4. Levothyroxine 50 mcg daily. 5. Gabapentin 600 mg 3 times daily. 6. Escitalopram 20 mg daily. 7. Cymbalta 60 mg daily. 8. Aspirin 81 mg daily. INPATIENT PIERCING ARTIST: Cardiology, Dr. Misael Delgadillo. BRIEF HOSPITAL COURSE: The patient is 83-year-old female with coronary artery disease, hypertension, diabetes mellitus type 2, and dyslipidemia, presented to the hospital with shortness of breath. A workup was consistent with congestive heart failure exacerbation. A BNP was 1071 along with potassium of 5.3 and creatinine of 1.25. She was monitored on telemetry unit. She was started on IV Lasix. Her weight improved from 180 pounds to 163 pounds at discharge. Symptomatically, she feels better. She was advised to monitor her fluids on the daily basis. Diuretics have been discontinued. She also underwent cardiac catheterization by Dr. Cr Delgadillo without any intervention. Official cardiac cath report is pending at this time. Primary care physician is advised to follow. Dr. Delgadillo added Imdur and Plavix. PHYSICAL EXAMINATION: VITAL SIGNS: On the day of discharge showed temperature 97.9, pulse rate of 98, blood pressure of 128/61, respirations of 18 with O2 saturation of 95% on room air. FINAL DIAGNOSES: 1. Acute on chronic diastolic heart failure exacerbation. 2. Coronary artery disease. Please note that metoprolol was held due to bradycardia. 3. Diabetes mellitus type 2. 4. Abnormal liver function tests secondary to passive hepatic congestion. 5. Dyslipidemia. 6. Peripheral neuropathy. 7. History of cerebrovascular accident. 8. Depression, mild, stable. 9. Obesity with a body mass index of 39.4. 10. Chronic anemia. 11. Hyponatremia. 12. Hypomagnesemia. Magnesium was 1.5 at discharge. She received 2 g of IV magnesium. PLAN: Plan was discussed with the patient in detail. She stated understanding. Job ID: [id number]
== END 2018-11-12 17:58 | disposition home health service (06) | DRG 286 ==
LOC: ERS 03:06 → ERHOLD 04:35 → 2SW 07:34 → OBSVTOIN 10:30 → 2NO 16:13
PROVIDERS: ADMIT Family Medicine; ATTEND Family Medicine
PROC: 4A023N8 Measurement of Cardiac Sampling and Pressure, Bilateral, Percutaneous Approach (ICD-10-PCS; principal; 2018-11-10)
PROC: B2151ZZ Fluoroscopy of Left Heart using Low Osmolar Contrast (ICD-10-PCS; 2018-11-10)
PROC: B2111ZZ Fluoroscopy of Multiple Coronary Arteries using Low Osmolar Contrast (ICD-10-PCS; 2018-11-10)
DX: I13.0 Hypertensive heart and chronic kidney disease with heart failure and stage 1 through stage 4 chronic kidney disease, or unspecified chronic kidney disease (principal); I50.33 Acute on chronic diastolic (congestive) heart failure; E87.1 Hypo-osmolality and hyponatremia; I25.10 Atherosclerotic heart disease of native coronary artery without angina pectoris; E03.9 Hypothyroidism, unspecified; F32.9 Major depressive disorder, single episode, unspecified; N18.3 Chronic kidney disease, stage 3 (moderate); E11.22 Type 2 diabetes mellitus with diabetic chronic kidney disease; E11.42 Type 2 diabetes mellitus with diabetic polyneuropathy; M19.012 Primary osteoarthritis, left shoulder; M19.011 Primary osteoarthritis, right shoulder; D63.1 Anemia in chronic kidney disease; E87.5 Hyperkalemia; Z79.899 Other long term (current) drug therapy; Z87.440 Personal history of urinary (tract) infections; Z79.84 Long term (current) use of oral hypoglycemic drugs; K76.1 Chronic passive congestion of liver; I69.90 Unspecified sequelae of unspecified cerebrovascular disease
CPT/HCPCS: 36415; 36416; 76705; 80048; 80053; 80076; 82274; 82607; 82728; 82746; 83540; 83735; 84443; 85025; 93005; 93306; 93458; 93798; C1769; J0360; J1644; J1940; J2001; J3475; Q9967

== ENCOUNTER 2019-05-27 09:59 | Outpatient (CLI) | payer MEDICARE, MEDICAID ==
--- NOTE | 2019-05-27 11:05 | MMO ---
Bilateral MAMMO Bilat Diag [facility]. CLINICAL HISTORY: Patient is 83 years old and is seen for diagnostic exam and lump or thickening in the right breast. The patient has no family history of breast cancer. The patient has no personal history of cancer. The patient has a history of right Excisional Biopsy in 1998 - BENIGN. VIEWS: The views performed were: bilateral craniocaudal with tomosynthesis; bilateral mediolateral oblique with tomosynthesis; and bilateral mediolateral with tomosynthesis. FILMS COMPARED: The present examination has been compared to prior imaging studies performed at [facility] on 07/26/2014, 07/30/2015, 07/31/2016 and 05/27/2019. This study has been interpreted with the assistance of computer-aided detection. MAMMOGRAM FINDINGS: There are scattered fibroglandular densities. Finding 1: There is a stable asymmetry seen in the anterior outer region of the right breast. Finding 2: There are stable benign appearing calcifications seen in both breasts. There are also vascular calcifications. Finding 3: There are no mammographic or sonographic abnormalities to explain the patient's breast pain. The patient is referred back to her clinician. Negative imaging findings should not preclude biopsy if clinical findings are suspicious. IMPRESSION: FINDING 3: THERE ARE NO MAMMOGRAPHIC ABNORMALITIES TO EXPLAIN THE PATIENT'S BREAST PAIN. THE PATIENT IS REFERRED BACK TO HER CLINICIAN. NEGATIVE IMAGING FINDINGS SHOULD NOT PRECLUDE BIOPSY IF CLINICAL FINDINGS ARE SUSPICIOUS. A ROUTINE FOLLOW-UP MAMMOGRAM IN 1 YEAR IS RECOMMENDED. THE RESULTS OF THIS EXAM WERE SENT TO THE PATIENT. ACR BI-RADS Category 2 - Benign finding MAMMOGRAPHY NOTE: 1. A negative mammogram report should not delay a biopsy if a dominant of clinically suspicious mass is present. 2. Approximately 10% to 15% of breast cancers are not detected by mammography. 3. Adenosis and dense breasts may obscure an underlying neoplasm. Reported by: ASHLEY WEBSTER MD Electonically Signed: [id number]
--- NOTE | 2019-05-27 11:51 | ULT ---
LIMITED RIGHT BREAST ULTRASOUND: Date: 05/27/2019 PROVIDED CLINICAL HISTORY: Right breast pain. FINDINGS: Limited sonographic interrogation was performed of the right breast in the region of patient pain. Th e sonographic appearance of the breast tissue in this region is normal. IMPRESSION: BI-RADS Category 1 - Negative. Negative imaging findings should not preclude further evaluation of a clinically suspicious abnormality. The patient is referred back to her clinician. POS: OFF
== END 2019-05-27 10:00 | disposition home or self-care (01) ==
LOC: BICMAMMO 09:59
PROVIDERS: ATTEND Family Medicine
DX: N63.0 Unspecified lump in unspecified breast (principal); N64.4 Mastodynia
CPT/HCPCS: 76642; 77066; G0279

== ENCOUNTER 2019-05-30 22:32 | Observation (INO) | payer MEDICARE, MEDICAID ==
[2019-05-31 00:12] LABS: Anion Gap 16 mmol/L (10-20); BUN (Urea Nitrogen) 48 mg/dL (9.8-20.1); Calc. Creatinine Clearance 0 mL/min (70-130); Calcium 8.8 mg/dL (7.8-10.44); Carbon Dioxide 24 mmol/L (23-31); Chloride 99 mmol/L (98-107); Estimated GFR-MDRD 28; Glucose 213 mg/dL (83-110); Potassium 4.7 mmol/L (3.5-5.1); Sodium 134 mmol/L (136-145)
[2019-05-31 00:18] LABS: Troponin I 0.018 ng/mL (< 0.028)
[2019-05-31] MEDS ORDERED: Furosemide 40 MG/4 ML VIAL ONE (00:20)
[2019-05-31] MEDS ORDERED: Senokot S 8.6-50 MG TAB PO PRN (02:30)
[2019-05-31] MEDS ORDERED: Acetaminophen 650 MG Suppository PR PRN (02:30)
[2019-05-31] MEDS ORDERED: Ondansetron PF 4 MG/2 ML Vial IVP PRN (02:30)
[2019-05-31] MEDS ORDERED: Ondansetron ODT 4 MG TAB PO PRN (02:30)
[2019-05-31] MEDS ORDERED: Acetaminophen 325 MG TAB PO PRN (02:30)
[2019-05-31] MEDS ORDERED: Dextrose 50% Abboject 50 ML SYRINGE SLOW IVP PRN (03:03)
[2019-05-31] MEDS ORDERED: HumaLOG 300 UNITS/3 ML VIAL SC PRN ×2 (03:03)
[2019-05-31] MEDS ORDERED: Dextrose 5% in Water 1,000 ML IV PRN (03:03)
[2019-05-31 03:23] LABS: Troponin I 0.011 ng/mL (< 0.028)
--- NOTE | 2019-05-31 03:36 | PDOC.HHP ---
Hospitalist HPI - History of Present Illness Shortness of breath History of Present Illness: Ms. Tejada presents complaining of shortness of breath when talking while at rest. Hospitalist ROS - Review of Systems Constitutional: reports: weakness, malaise. denies: fever, chills, sweats, other Eyes: denies: pain, vision change, conjunctivae inflammation, eyelid inflammation, redness, other ENT: denies: ear pain, ear discharge, nose pain, nose discharge, nose congestion , mouth pain, mouth swelling, throat pain, throat swelling, other Respiratory: reports: shortness of breath, SOB with excertion. denies: cough, dry, hemoptysis, pleuritic pain, sputum, wheezing, other Cardiovascular: reports: chest pain (anterior chest which she states is chronic , due to arthritis, tender). denies: palpitations, orthopnea, paroxysmal noc. dyspnea, edema, light headedness, other Gastrointestinal: reports: constipation. denies: nausea, vomiting, abdominal pain, diarrhea, melena, hematochezia, other Genitourinary: denies: dysuria, frequency, incontinence, hematuria, retention, other Hospitalist Results - Labs Result Diagrams: 05/30/19 23:19 Lab results: Sodium 134 mmol/L (136-145) L 05/30/19 23:19 Potassium 4.7 mmol/L (3.5-5.1) 05/30/19 23:19 Chloride 99 mmol/L (98-107) 05/30/19 23:19 Carbon Dioxide 24 mmol/L (23-31) 05/30/19 23:19 BUN 48 mg/dL (9.8-20.1) H 05/30/19 23:19 Creatinine 1.76 mg/dL (0.6-1.1) H 05/30/19 23:19 Glucose 213 mg/dL (83-110) H 05/30/19 23:19 Calcium 8.8 mg/dL (7.8-10.44) 05/30/19 23:19 Troponin I 0.018 ng/mL (< 0.028) 05/30/19 23:19 B-Natriuretic Peptide 803.0 pg/mL (0-100) H 05/30/19 23:19
--- NOTE | 2019-05-31 03:49 | HP ---
TIME OF ASSESSMENT: 0200 hours. CHIEF COMPLAINT: Shortness of breath, worse with talking. HISTORY OF PRESENT ILLNESS: Ms. Tejada is an 83-year-old woman who presents to the hospital with complaints of increasing shortness of breath while at rest, at times gets considerably worse with talking. The patient was initially seen at [facility] and apparently she had complained of chest pressure. The patient states the only chest discomfort. She experiences this pain on the right anterior part of her chest which she states is tender and associated with arthritis. The patient denies any trauma. She denies any associated cough or hemoptysis. She has been able to walk around with her walker at home this past week, but at times has these episodes of difficulty breathing even while at rest. Denies any recent fevers, chills, or sweats. She has noted swelling of both lower extremities. In the Emergency Department, the patient underwent laboratory studies showing a white count of 6.2, hemoglobin 10.5, hematocrit 33.1, platelets 226, and neutrophils 76.8. Sodium 134, potassium 4.7, BUN 48, creatinine 1.76, GFR 28, calcium 8.8, magnesium 2.0. LFTs unremarkable. BNP was elevated at 803. CK was 44. Initial troponin and second troponin negative. The patient had a chest x-ray done which showed no acute changes. Given lower extremity swelling and elevated BNP, she was treated for fluid overload and given Lasix 40 mg IV in the Emergency Department. Of note, the patient is status post recent catheterization done in 03/2019 which showed 60% stenosis of the proximal LAD, 90% stenosis of the first diagonal, and 70% stenosis of the proximal RCA. Last echo was done on November 11, 2018, showing an EF of 55% to 60% with normal ventricular size. There was impaired relaxation compatible with diastolic dysfunction and also mild tricuspid regurgitation present. PAST MEDICAL HISTORY: 1. Type 2 diabetes mellitus. 2. Hyperlipidemia. 3. Hypertension. 4. Obesity. 5. Hypothyroidism. 6. Arthritis. 7. Sleep apnea. 8. Anxiety. 9. Depression. PAST SURGICAL HISTORY: 1. Hysterectomy. 2. Oophorectomy. 3. Implants in back. 4. Hip replacements, removed. 5. Catheterization in March 2019 as above. SOCIAL HISTORY: The patient lives with her granddaughter. Denies any tobacco use, alcohol consumption, or illicit drug use. She mobilizes with the help of a walker. PHYSICAL EXAMINATION: GENERAL: The patient appears fatigue, slightly short of breath after multiple sentences. No acute distress. VITAL SIGNS: Temperature 97.6, pulse is 59, respirations 22, O2 saturation 97% on room air, and blood pressure 147/67. HEENT: Normocephalic and atraumatic. Pupils are equal, round, and reactive to light. Sclerae without icterus. Oropharynx is clear. NECK: Supple. LUNGS: Clear bilaterally without any wheezes, rales, or rhonchi. CARDIAC: Regular rate and rhythm. ABDOMEN: Soft, obese, nontender, nondistended. Normoactive bowel sounds present. No guarding or rigidity. EXTREMITIES: Notable for firm edema bilaterally with bilateral calf tenderness. NEUROLOGIC: Alert and oriented x3. SKIN: Warm and dry. INVESTIGATIONS: As mentioned above in HPI. IMPRESSION AND PLAN: Ms. Tejada is a very pleasant 83-year-old woman who is being admitted for management of the following. 1. Shortness of breath. The patient with normal chest x-ray and elevated BNP, treated with Lasix in the Emergency Department. She has not yet noted any symptomatic improvement following Lasix. Given how sedentary she has been over the last few days due to the shortness of breath, I am concerned about the possibility of pulmonary embolism. The patient with poor renal function, therefore unable to have CT angiogram done. We will obtain venous Dopplers to assess for venous thromboembolism. She does have lower extremity edema and calf tenderness. 2. Coronary artery disease. The patient with recent abnormal catheterization. The only chest pain she has complained of today is arthritic pain which she states is long standing. Troponins negative x2. Continue to trend troponin. 3. Hypertension. Monitor blood pressure and resume home medications once verified. 4. Type 2 diabetes mellitus. Resume home medications once verified. Monitor blood glucose. Initiate insulin sliding scale. 5. Hyperlipidemia. Resume home medications once verified. 6. Hypothyroidism. Check TSH with morning labs. Resume home medications once verified. 7. Gastrointestinal prophylaxis with famotidine. 8. Code status is full. Surrogate decision maker is her daughter, Katarzyna Tejada. The patient's case was discussed with Dr. Nolasco, who agrees with plan of care as described above. Job ID: [id number]
[2019-05-31 06:08] LABS: Hemoglobin 11.7 g/dL (12.0-16.0); Mean Corpuscular HGB CONC 33.4 g/dL (32.0-36.0); Mean Corpuscular Hemoglobin 33.3 pg (27.0-31.0); Mean Corpuscular Volume 99.6 fL (78.0-98.0); Mean Platelet Volume 7.4 fL (7.4-10.4); Platelet Count 208 thou/uL (130-400); RBC Distribution Width 13.7 % (11.5-14.5); Red Blood Cell (RBC) Count 3.52 mill/uL (4.20-5.40)
[2019-05-31 06:11] LABS: Anion Gap 15 mmol/L (10-20); BUN (Urea Nitrogen) 45 mg/dL (9.8-20.1); Calc. Creatinine Clearance 0 mL/min (70-130); Calcium 9.3 mg/dL (7.8-10.44); Carbon Dioxide 29 mmol/L (23-31); Chloride 99 mmol/L (98-107); Estimated GFR-MDRD 30; Glucose 112 mg/dL (83-110); Potassium 4.1 mmol/L (3.5-5.1); Sodium 139 mmol/L (136-145)
[2019-05-31 06:22] LABS: #Eosinphils 0.1 thou/uL (0.0-0.7); #Monocytes 0.7 thou/uL (0.11-0.59); #Neutrophils 4.2 thou/uL (1.40-6.50); %Basophils 0.4 % (0.0-1.0); %Eosinophils 1.6 % (0.0-10.0); %Lymphocytes 28.8 % (21.0-51.0); %Monocytes 9.4 % (0.0-10.0); %Neutrophils 59.8 % (42.0-75.0)
--- NOTE | 2019-05-31 07:50 | ULT ---
PRELIMINARY REPORT/DIRECT RADIOLOGY/EMERGENCY AFTER HOURS PROCEDURE: EXAM: US Duplex bilateral Lower Extremity Veins. CLINICAL HISTORY: BLE pain/edema No DVT visualized BLE complex fluid collection at rt medial knee - 4.9x1.1x2.0cm difficult study due to movement TECHNIQUE: Real-time ultrasound scan of the veins of the bilateral lower extremity with color Doppler flow, spectral waveform analysis and compression. COMPARISON: None provided. FINDINGS: DEEP VEINS: The common femoral, femoral, and popliteal veins are echolucent and compressible. These v essels demonstrate respiratory variation and augmentation. There is normal color Doppler flow throughout. The visualized calf veins are also patent. SUPERFICIAL VEINS: The visualized greater saphenous vein is patent. SOFT TISSUES: No popliteal fossa cyst or other abnormalities. IMPRESSION: No deep venous thrombosis in the bilateral lower extremity. ELECTRONICALLY SIGNED BY: Jese Mix MD May 31, 2019 3:57:23 AM [facility] FINAL REPORT BILATERAL LOWER EXTREMITY VENOUS DOPPLER ULTRASOUND: I agree with the report given by Dr. Sawant and [facility] no evidence of DVT seen on e ither side. Transcribed Date/Time: 05/31/2019 8:31 AM
[2019-05-31] MEDS ORDERED: Famotidine/PF 20 mg/2ml Vial ONE (10:13)
[2019-05-31] MEDS: Famotidine/PF 20 mg/2ml Vial SLOW IVP SCH (10:15)
--- NOTE | 2019-05-31 12:10 | NM ---
VQ SCAN: HISTORY: Shortness of breath TECHNIQUE: A ventilation/perfusion scan was performed using 8.7 mCi xenon-133 by inhalation for the ventilation study followed by the intravenous administration of 5.4 mCi technetium 99m-MAA for the perfusion scan. CORRELATION: Chest radiograph from previous evening. FINDINGS: No mismatched pleural-based, wedge-shaped, segmental or subsegmental perfusion defects are identified in the right lung. There is a large nonsegmental perfusion defect in the posterior aspect of the left lower lobe. There is tracer retention on the washout phase of the ventilation scan, compatible with COPD. IMPRESSION: Intermediate probability for pulmonary embolism.
[2019-05-31 15:16] VITALS: BMI 43.9
[2019-05-31] MEDS ORDERED: Sodium Chloride 0.9% 1,000 ML IV SCH (18:00)
[2019-05-31] MEDS ORDERED: Isosorbide Mononitrate (ER) 30 MG TAB PO SCH (18:30)
[2019-05-31] MEDS ORDERED: Aspirin 81 mg Enteric Coated Tablet PO SCH ×2 (18:30→21:00)
[2019-05-31] MEDS: Sodium Chloride 0.9% 1,000 ML IV SCH (19:08)
--- NOTE | 2019-05-31 19:34 | PDOC.HOSPP ---
- Subjective Encounter Date: 05/31/19 Encounter Time: 17:35 Subjective: f/u for CP and dyspnea. No current complaints or O2 use. Feels ok but described her presentation and pressure and choking in the neck and central chest. Known CAD managed with ASA/Pravachol. - Objective Vital Signs & Weight: Vital Signs (12 hours) Temp Pulse Resp BP Pulse Ox 05/31/19 15:26 100 05/31/19 14:55 97.6 F 49 L 18 161/65 H 100 Weight Weight 182 lb 4.8 oz I&O: 05/30/19 05/31/19 06/01/19 06:59 06:59 06:59 Intake Total 480 Output Total 0 Balance 480 Result Diagrams: 05/31/19 05:49 05/31/19 05:49 Additional Labs: Accuchecks 05/31/19 05/31/19 16:35 15:11 POC Glucose 214 H 158 H Laboratory Tests 12/10/18 05/10/19 05/30/19 14:44 13:46 19:21 Creatinine Magnesium Troponin I 0.010 B-Natriuretic Peptide 903.6 H 403.2 H TSH 3rd Generation 05/30/19 05/30/19 05/30/19 23:19 23:19 23:19 Creatinine 1.76 H Magnesium 2.0 Troponin I 0.018 B-Natriuretic Peptide 803.0 H TSH 3rd Generation 05/31/19 05/31/19 02:05 05:49 Creatinine Magnesium Troponin I 0.011 B-Natriuretic Peptide TSH 3rd Generation 3.6923 Radiology Reviewed by me: Yes (Echo - EF 55-60%, mild/mod TR, suboptimal study, LE venous dopp - neg) EKG Reviewed by me: Yes (Tele - SR) Hospitalist ROS - Medication Medications: Active Medications Generic Name Dose Route Start Last Admin Trade Name Freq PRN Reason Stop Dose Admin Famotidine 20 mg 05/31/19 09:00 05/31/19 10:15 Pepcid SLOW IVP 20 mg DAILY ANAI Administration Sodium Chloride 1,000 mls @ 50 mls/hr 05/31/19 18:30 05/31/19 19:08 Normal Saline 0.9% IV 1,000 mls .Q20H ANAI Administration Isosorbide Mononitrate 30 mg 05/31/19 18:30 05/31/19 19:08 Imdur Er PO 05/31/19 21:00 30 mg NOW ANAI Administration - Exam General Appearance: NAD, awake alert Eye: PERRL, anicteric sclera ENT: normocephalic atraumatic, no oropharyngeal lesions Neck: supple, symmetric, no JVD, no thyromegaly Heart: RRR, no murmur, no gallops, no rubs, normal peripheral pulses Respiratory: CTAB, no wheezes, no rales, no ronchi, normal chest expansion Respiratory - other findings: mild TTP in anterior chest wall Gastrointestinal: soft, non-tender, non-distended, normal bowel sounds, no guarding Extremities: no cyanosis, no clubbing, no edema Skin: normal turgor, no lesions Neurological: cranial nerve grossly intact, no new deficit Musculoskeletal: normal tone, generalized weakness Psychiatric: normal affect, A&O x 3 Hosp A/P (1) Dyspnea Code(s): R06.00 - DYSPNEA, UNSPECIFIED Status: Acute Plan: ? etiology, V/Q scan showed intermediate probability study, check CTA chest in am for definitive r/o for PE (2) Chest pain Code(s): R07.9 - CHEST PAIN, UNSPECIFIED Status: Acute Plan: ? angina, known CAD on ASA, add Imdur 30mg daily (3) CAD (coronary artery disease) Code(s): I25.10 - ATHSCL HEART DISEASE OF [place] CORONARY ARTERY W/O ANG PCTRS Status: Chronic Qualifiers: Coronary Disease-Associated Artery/Lesion type: [place] artery [place] vs. transplanted heart: [place] heart Associated angina: without angina Qualified Code(s): I25.10 - Atherosclerotic heart disease of [place] coronary artery without angina pectoris Plan: Continue ASA, Pravachol, add Imdur (4) DM type 2 (diabetes mellitus, type 2) Status: Chronic Qualifiers: Diabetes mellitus certified legal investigator insulin use: without certified legal investigator use Diabetes mellitus complication status: with unspecified complications Plan: ISS, serial accuchecks (5) HTN (hypertension) Code(s): I10 - ESSENTIAL (PRIMARY) HYPERTENSION Status: Chronic Qualifiers: Hypertension type: essential hypertension Qualified Code(s): I10 - Essential (primary) hypertension (6) Hypothyroidism Code(s): E03.9 - HYPOTHYROIDISM, UNSPECIFIED Status: Chronic Qualifiers: Hypothyroidism type: unspecified Qualified Code(s): E03.9 - Hypothyroidism , unspecified - Plan plan discussed w/ family, social media strategist, out of bed/ambulate, DVT proph w/SCDs Stable currently Check CTA chest in am to r/o PE IVF's overnight Continue ASA, Pravachol Trial Imdur 30mg daily AM lab: BMP
[2019-05-31] MEDS: Gabapentin 300 MG CAP PO SCH (20:04)
[2019-05-31] MEDS ORDERED: Atorvastatin Calcium 10 MG TAB PO SCH (21:00)
[2019-06-01 04:55] LABS: Anion Gap 12 mmol/L (10-20); BUN (Urea Nitrogen) 37 mg/dL (9.8-20.1); Calc. Creatinine Clearance 46 mL/min (70-130); Carbon Dioxide 28 mmol/L (23-31); Chloride 104 mmol/L (98-107); Estimated GFR-MDRD 41; Glucose 129 mg/dL (83-110); Potassium 4.5 mmol/L (3.5-5.1); Sodium 139 mmol/L (136-145)
[2019-06-01] MEDS ORDERED: Levothyroxine Sodium 50 MCG TAB PO SCH (06:00)
--- NOTE | 2019-06-01 08:59 | CT ---
CT PULMONARY ANGIOGRAM WITH IV CONTRAST AND 3-D POSTPROCESSING: HISTORY:Shortness of breath FINDINGS: There is good contrast opacification of the pulmonary arterial vasculature without filling defects to suggest pulmonary embolism. The thoracic aorta is well opacified without aneurysm or dissection. No pleural or pericardial effusions are seen. No pneumothoraces, focal areas of consolidation or lung nodules are noted. There are dependent change s in the posterior lung bases. There are degenerative changes in the spine. Upper abdominal tomograms demonstrate changes of cholecystectomy. IMPRESSION: No CT evidence of pulmonary embolism.
[2019-06-01] MEDS ORDERED: predniSONE 5 MG TAB PO SCH (09:00)
[2019-06-01] MEDS ORDERED: Escitalopram Oxalate 20 mg Tablet PO SCH (09:00)
[2019-06-01] MEDS ORDERED: Pioglitazone HCl 45 MG TAB PO SCH (09:00)
[2019-06-01] MEDS ORDERED: Isosorbide Mononitrate (ER) 30 MG TAB PO SCH (09:00)
[2019-06-01] MEDS ORDERED: Aspirin 81 mg Enteric Coated Tablet PO SCH (09:00)
[2019-06-01] MEDS ORDERED: DULoxetine 60 MG CAP PO SCH (09:00)
[2019-06-01] MEDS ORDERED: Alogliptin 25 MG TAB PO SCH (09:00)
[2019-06-01] MEDS: Famotidine/PF 20 mg/2ml Vial SLOW IVP SCH (09:08)
[2019-06-01] MEDS: Gabapentin 300 MG CAP PO SCH ×2 (09:09→16:22)
[2019-06-01] MEDS ORDERED: Iopamidol-370 76% 500 ML 1 ML ONE (14:56)
[2019-06-01] MEDS: Sodium Chloride 0.9% 1,000 ML IV SCH (16:24)
--- NOTE | 2019-06-01 16:48 | DIS ---
DATE OF ADMISSION: 05/30/2019 DATE OF DISCHARGE: 06/01/2019 DISCHARGE DIAGNOSES: 1. Chest pain, likely angina, improved. 2. Dyspnea secondary to chest pain, resolved. 3. Coronary artery disease, chronic and stable. 4. Diabetes mellitus, type 2, stable. 5. Hypertension, stable. 6. Hypothyroidism. 7. Chronic kidney disease, stage 3. CONSULTATIONS: None. PERTINENT LABORATORY AND X-RAY FINDINGS: Creatinine ranged between 1.25 to 1.76. Estimated GFR ranged between 28 to 41. Magnesium level 2.0. Troponin I negative x3. BNP 803, previously noted 403 on 05/10/2019. TSH 3.69. CBC showed a hemoglobin of 12, hematocrit 35, and MCV 100. Portable chest x-ray dated 05/30/2019 showed no acute cardiopulmonary process. Bilateral lower extremity venous Doppler study dated 05/31/2019, showed no evidence for DVT. 2D transthoracic echocardiogram dated 05/31/2019, showed ejection fraction of 55% to 60%. Technically limited study with suboptimal imaging. Mild left atrial enlargement. [id number] tricuspid regurgitation. Ventilation perfusion study dated 05/31/2019, showed intermediate probability for pulmonary embolus. CT angiogram of the chest dated 06/01/2019, showed no evidence for pulmonary embolus. HOSPITAL COURSE: The patient was observed on the telemetry unit after initially presenting with increasing shortness of breath and chest pain. The patient with known history of coronary artery disease, medically managed, undergoing initial cardiac biomarkers, which were negative x3. The patient also underwent evaluation for dyspnea including ventilation perfusion study showing intermediate probability for pulmonary embolus. Due to the findings on this study, the patient proceeded to CT angiogram of the chest showing no evidence of pulmonary embolus. The patient was treated for likely angina presentation with the addition of Imdur 30 mg daily. The patient continued on her regular routine of aspirin, beta-blockers, DEREK inhibitors, and statin agents without complication. Telemetry monitoring showed sinus mechanism without acute arrhythmia or dysrhythmia. Overall, the patient did remain clinically stable during the hospital course and tolerated regular oral intake. I have examined the patient at the time of discharge and discussed followup instructions. The patient verbalized understanding and in agreement and ready for discharge on 06/01/2019. DISCHARGE MEDICATIONS: 1. Aspirin enteric-coated 81 mg p.o. daily. 2. Cymbalta 60 mg p.o. daily. 3. Lexapro 20 mg p.o. daily. 4. Gabapentin 300 mg p.o. t.i.d. 5. Levothyroxine 50 mcg p.o. daily. 6. Lisinopril 5 mg p.o. daily. 7. Toprol-XL 50 mg p.o. daily. 8. Pioglitazone 45 mg p.o. daily. 9. Pravachol 40 mg p.o. at bedtime. 10. Prednisone 5 mg p.o. daily. 11. Januvia 100 mg p.o. daily. 12. Lasix 20 mg p.o. daily. 13. Isosorbide mononitrate 30 mg p.o. daily. FOLLOWUP: The patient may follow up with Dr. Asmita Ramesh within 7 days of discharge. CONDITION ON DISCHARGE: Stable. ACTIVITY: Ad-sowmya. DIET: Heart healthy and ADA. CODE STATUS: Full. DISPOSITION: Home on 06/01/2019. Job ID: [id number]
[2019-06-01 19:27] VITALS: BP 158/74; TEMP 98
== END 2019-06-01 19:33 | disposition home or self-care (01) ==
LOC: ERS 22:32 → ERHOLD 23:41 → 2NO 23:41
PROVIDERS: ADMIT Internal Medicine; ATTEND Internal Medicine
DX: R07.89 Other chest pain (principal); I12.9 Hypertensive chronic kidney disease with stage 1 through stage 4 chronic kidney disease, or unspecified chronic kidney disease; E11.22 Type 2 diabetes mellitus with diabetic chronic kidney disease; N18.3 Chronic kidney disease, stage 3 (moderate); I25.10 Atherosclerotic heart disease of native coronary artery without angina pectoris; E03.9 Hypothyroidism, unspecified; M19.90 Unspecified osteoarthritis, unspecified site; G47.30 Sleep apnea, unspecified; F41.9 Anxiety disorder, unspecified; F32.9 Major depressive disorder, single episode, unspecified; E66.9 Obesity, unspecified; Z68.41 Body mass index [BMI] 40.0-44.9, adult; Z79.82 Long term (current) use of aspirin; Z79.899 Other long term (current) drug therapy; Z88.0 Allergy status to penicillin; Z88.5 Allergy status to narcotic agent; Z88.6 Allergy status to analgesic agent; Z88.8 Allergy status to other drugs, medicaments and biological substances
CPT/HCPCS: 71275; 78582; 80048 ×3; 82962 ×2; 83735; 83880; 84443; 84484 ×2; 85025; 93306; 93970; 96374; 96375; 96376; 97116; 97139 ×2; 97530; 97535; 99285; A9540; A9558; G0378 ×3; 36415; 36416; J1940; J7512; Q9967; S0028

== ENCOUNTER 2019-10-10 12:40 | Outpatient (CLI) | payer MEDICARE, MEDICAID ==
--- NOTE | 2019-10-10 13:02 | RAD ---
EXAM: Left rib series HISTORY: Rib pain COMPARISON: 08/14/2011 FINDINGS: Multiple views of the left ribs shows no evidence of displaced rib fracture. No underlying pleural th ickening or pneumothorax are seen. Degenerative changes are seen in the left shoulder. Hardware seen in the lumbar spine. IMPRESSION: 1. No evidence of displaced rib fracture.
--- NOTE | 2019-10-10 13:04 | RAD ---
EXAM: Right rib series HISTORY: Rib pain COMPARISON: None FINDINGS: Multiple views of the right ribs shows no evidence of acute rib fracture. There is a remote fracture of the lateral sixth rib. No underlying pleural thickening or pneumothorax are seen. IMPRESSION: 1. No evidence of acute rib fracture.
== END 2019-10-10 12:41 | disposition home or self-care (01) ==
LOC: BICRAD 12:40
PROVIDERS: ATTEND Family Medicine
DX: R07.81 Pleurodynia (principal)

== ENCOUNTER 2022-09-01 12:58 | Outpatient (CLI) | payer OTHER, MEDICAID | END 2022-09-01 12:59 | disposition home or self-care (01) | LOC: ULT 12:58 | PROVIDERS: ATTEND Family Medicine | DX: E11.65 Type 2 diabetes mellitus with hyperglycemia (principal); E11.51 Type 2 diabetes mellitus with diabetic peripheral angiopathy without gangrene; I10 Essential (primary) hypertension; I70.8 Atherosclerosis of other arteries | CPT/HCPCS: 71046; 93923 ==